=== PATIENT | male | born 1935 | race Caucasian/White ===

== ENCOUNTER 2023-02-16 06:21 | Inpatient (IN) | payer MEDICARE ==
--- NOTE | 2023-02-16 06:28 | ED ---
General Adult HPI - General Stated complaint: STEMI Time Seen by Provider: 02/16/23 06:25 - History of Present Illness Initial comments: Dictation was produced using SpeechVive dictation software. please excuse any grammatical, word or spelling errors. Chief Complaint: 87-year-old male presents emergency part for ST segment elevation OR History of Present Illness: Patient is a 87-year-old male. He is high functioning. Patient has a past medical history of atrial fibrillation managed with pelvic [place]. Patient while sleeping experience a pressure-like sensation to his substernal area. He states that it also the leg is in between his shoulder blades. Patient reports associated nausea and diaphoresis. Denies any numbness and paresthesias to the arms or legs. EMS was called. EMS performed prehospital EKG was suggested ST segment elevation OR he was brought to the ER as a priority 1. Patient was not given nitro he was given aspirin. Patient has any history of myocardial infarction. The ROS documented in this emergency department record has been reviewed and confirmed by me. Those systems with pertinent positive or negative responses have been documented in the HPI. All other systems are other negative and/or noncontributory. PHYSICAL EXAM: General Impression: Alert and oriented x3, not in acute distress HEENT: Normocephalic atraumatic, extra-ocular movements intact, pupils equal and reactive to light bilaterally, mucous membranes moist. Cardiovascular: Heart regular rate and rhythm Chest: Able to complete full sentences, no retractions, no tachypnea Abdomen: abdomen soft, non-tender, non-distended, no organomegaly Musculoskeletal: Pulses present and equal in all extremities, no peripheral edema Motor: no focal deficits noted Neurological: CN II-XII grossly intact, no focal motor or sensory deficits noted Skin: Intact with no visualized rashes Psych: Normal affect and mood ED course: 87-year-old male presents to emergency part for ST segment elevation OR. Prehospital EKG was reviewed. There was a delay with activation given that EKG was not transmitted prior to arrival. EKG was performed immediately upon arrival showing ST segment elevation OR and inferior leads with reciprocal changes. Case discussed with garage mechanic supervisor cell operation, Dr. Mccain. Nursing notes and chart review was performed EKG interpreted by me: Ventricular rate 57, A. fib, ST segment elevation in 2-3 aVF and V3. There is reciprocal changes and high lateral leads and anterior precordial leads.. No [place] prolongation, no QTC prolongation. While in the emergency department waiting to go to the cardiac cath tech patient had a an episode of syncope. environmental monitoring technician showed ventricular fibrillation. Patient was given defibrillation. He had another event requiring defibrillation. Patient had return of normal rhythm with return to normal mentation. Patient started on amiodarone. He received aspirin by prehospital providers. Patient given heparin bolus. Was pt. sent in by a medical professional or institution ([facility] Marsh, PROMOTION PRODUCER, urgent care, hospital, or fdc...) When possible be specific @ -No Did you speak to anyone other than the patient for history (EMS, parent, family, police, friend...)? What history was obtained from this source @ -EMS Did you review nursing and triage notes (agree or disagree)? Why? @ -I reviewed and agree with nursing and triage notes Were old charts reviewed (outside hosp., previous admission, EMS record, old EKG, old radiological studies, urgent care reports/EKG's, fdc records)? Report findings @ -No old charts were reviewed Differential Diagnosis (chest pain, altered mental status, abdominal pain women, abdominal pain men, vaginal bleeding, musculoskeletal, weakness, fever, dyspnea, syncope, headache, dizziness, GI bleed, back pain, seizure, CVA, palpatations, mental health)? @ -Differential Chest Pain: Stable Angina, Unstable Angina, STEMI, NSTEMI Aortic Dissection, Pneumothorax, Musculoskeletal, Esophageal Spasm GERD, Cholecystitis, Pancreatitis, Zoster, this is not meant to be an all-inclusive list. EKG interpreted by me (3pts min.). @ -See above X-rays interpreted by me (1pt min.). @ -No acute processes CT interpreted by me (1pt min.). @ -None done U/S interpreted by me (1pt. min.). @ -None done What testing was considered but not performed or refused? (CT, X-rays, U/S, labs)? Why? @ -None What meds were considered but not given or refused? Why? @ -None Did you discuss the management of the patient with other professionals (professionals i.e. JOSE Marsh, PROMOTION PRODUCER, lab, RT, psych nurse, social worker delinquency prevention, criminal defense lawyer, teacher, contracts officer, showcase trimmer)? Give summary @ -No Was smoking cessation discussed for >3mins.? @ -No Was critical care preformed (if so, how long)? @ -Yes, 33 minutes Were there social determinants of health that impacted care today? How? (Homeles sness, low income, unemployed, alcoholism, drug addiction, transportation, low edu. Level, literacy, decrease access to med. care, correction, rehab)? @ -No Was there de-escalation of care discussed even if they declined (Discuss DNR or withdrawal of care, Hospice)? DNR status @ -No What co-morbidities impacted this encounter? (DM, HTN, Smoking, COPD, CAD, Cancer, CVA, ARF, Chemo, Hep., AIDS, mental health diagnosis, sleep apnea, morbid obesity)? @ -None Was patient admitted / discharged? Hospital course, mention meds given and route, prescriptions, significant lab abnormalities, going to OR and other pertinent info. @ -87-year-old male presents emergency department for ST segment elevation OR. Code STEMI paged. Case discussed with Dr. Mccain. Patient disposition to cardiac cath tech 3. Undiagnosed new problem with uncertain prognosis? @ -No Drug Therapy requiring intensive monitoring for toxicity (Heparin, Nitro, Insulin, Cardizem)? @ -No Were any procedures done? @ -Defibrillation Diagnosis/symptom? Acute, or Chronic, or Acute on Chronic? Uncomplicated (without systemic symptoms) or Complicated (systemic symptoms)? @ -Acute, complicated ST segment elevation OR Side effects of treatment? @ -No Exacerbation, Progression, or Severe Exacerbation? @ -No Poses a threat to life or bodily function? How? (Chest pain, USA, OR, pneumonia, PE, COPD, DKA, ARF, appy, cholecystitis, CVA, Diverticulitis, Homicidal, Suic idal, threat to staff... and all critical care pts) @ -yes - Related Data Allergies Allergy/AdvReac Type Severity Reaction Status Date / Time No Known Allergies Allergy Verified 02/16/23 06:30 Review of Systems ROS Statement: Those systems with pertinent positive or pertinent negative responses have been documented in the HPI. ROS Other: All systems not noted in ROS Statement are negative. Course Vital Signs 02/16/23 02/16/23 06:22 06:39 Pulse Rate 63 Pulse Rate [ 63 Compliance Analyst ] Respiratory 20 Rate Blood Pressure 82/67 O2 Sat by Pulse 92 L Oximetry Medical Decision Making - Lab Data Result diagrams: 02/16/23 06:36 Lab Results 02/16/23 Range/Units 06:36 WBC 7.3 (3.8-10.6) k/uL RBC 5.53 (4.30-5.90) m/uL Hgb 16.5 (13.0-17.5) gm/dL Hct 52.0 (39.0-53.0) % MCV 93.9 (80.0-100.0) fL MCH 29.9 (25.0-35.0) pg MCHC 31.8 (31.0-37.0) g/dL RDW 15.2 (11.5-15.5) % Plt Count 154 (150-450) k/uL MPV 8.7 Neutrophils % 61 % Lymphocytes % 25 % Monocytes % 9 % Eosinophils % 3 % Basophils % 1 % Neutrophils # 4.5 (1.3-7.7) k/uL Lymphocytes # 1.8 (1.0-4.8) k/uL Monocytes # 0.6 (0-1.0) k/uL Eosinophils # 0.2 (0-0.7) k/uL Basophils # 0.1 (0-0.2) k/uL Disposition Clinical Impression: STEMI (ST elevation myocardial infarction) Disposition: ADMITTED IP TO THIS [facility] Condition: Critical Referrals: None,Stated [Primary Care Provider] - 1-2 days Decision Time: 06:47
[2023-02-16] MEDS ORDERED: ONDANSETRON 4 MG/2 ML VIAL IVP STA (06:37)
[2023-02-16] MEDS ORDERED: DEXTROSE 5% IN WATER 100 ML with AMIODARONE 150 MG IV ONE (06:39)
[2023-02-16] MEDS ORDERED: HEPARIN SODIUM 1,000 UN/ML (10ML VL) IVP STA (06:40)
[2023-02-16] MEDS ORDERED: NALOXONE 0.4 MG/ML 1 ML VIAL IV PRN (06:43)
[2023-02-16 06:44] LABS: Basophils # (A) 0.1 k/uL (0-0.2); Basophils % (A) 1 %; Eosinophils # (A) 0.2 k/uL (0-0.7); Eosinophils % (A) 3 %; HGB 16.5 gm/dL (13.0-17.5); Lymphocytes # (A) 1.8 k/uL (1.0-4.8); Lymphocytes % (A) 25 %; MCH 29.9 pg (25.0-35.0); MCHC 31.8 g/dL (31.0-37.0); MCV 93.9 fL (80.0-100.0); Mean Platelet Volume 8.7; Monocytes # (A) 0.6 k/uL (0-1.0); Monocytes % (A) 9 %; Neutrophils # (A) 4.5 k/uL (1.3-7.7); Neutrophils % (A) 61 %; Platelet Count 154 k/uL (150-450); RBC 5.53 m/uL (4.30-5.90); RDW 15.2 % (11.5-15.5); WBC 7.3 k/uL (3.8-10.6)
[2023-02-16] MEDS ORDERED: VERAPAMIL 2.5 MG/ML 2 ML AMP ONE (06:47)
[2023-02-16] MEDS ORDERED: LIDOCAINE 1% INJ 10MG/ML (20 ML MDV) ONE (06:47)
[2023-02-16 06:54] LABS: Albumin 4.4 g/dL (3.5-5.0); Calcium 9.3 mg/dL (8.4-10.2); Potassium 4.3 mmol/L (3.5-5.1); Total Bilirubin 1.9 mg/dL (0.2-1.3); Total Protein 7.4 g/dL (6.3-8.2)
--- NOTE | 2023-02-16 06:58 | XR ---
EXAMINATION TYPE: XR chest 1V portable DATE OF EXAM: 02/16/2023 6:49 AM COMPARISON: None TECHNIQUE: XR chest 1V portable Portable AP radiograph of the chest. CLINICAL INDICATION:Male, 87 years old with history of chest pain; FINDINGS: Lungs/Pleura: No pneumothorax, focal consolidation, or pneumothorax. Senescent parenchymal change. Pulmonary vascularity: Unremarkable. Heart/mediastinum: Cardiomediastinal silhouette is enlarged. Atherosclerotic calcification of the aor ta. Musculoskeletal: No acute osseous pathology. 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 IMPRESSION: No acute cardiopulmonary disease/process.
[2023-02-16] MEDS ORDERED: fentaNYL (PF) 50 MCG/ML 2 ML AMP ONE (06:59)
[2023-02-16] MEDS ORDERED: AMIODARONE 360 MG in DEXTROSE 5% IN WATER 200 ML IV ONE ×2 (07:00)
[2023-02-16 07:01] LABS: INR 1.2 (<1.2); Partial Thromboplastin Time 22.1 sec (22.0-30.0); Prothrombin Time 12.6 sec (9.0-12.0)
[2023-02-16] MEDS ORDERED: TICAGRELOR 90 MG TAB ONE (07:10)
[2023-02-16] MEDS ORDERED: SODIUM CHLORIDE 0.9% 1,000 ML IV ONE (07:10)
[2023-02-16] MEDS ORDERED: TICAGRELOR 90 MG TAB PO ONE (07:10)
--- NOTE | 2023-02-16 07:12 | P.CRDCN ---
History of Present Illness History of present illness: This is Dr. Mccain dictating a consult on this patient The patient was interviewed and examined IMPRESSION / ASSESSMENT: Large inferoposterior lateral acute SD, ST elevation type History of hypertension History of atrial fibrillation, on ELIQUIS PLAN: Proceed with coronary angiography and urgent intervention Discussed with Dr. Banks HPI Patient presented with midsternal chest discomfort that woke him up from sleep at around 4:30 in the morning I was called the ER physician stating that this was an 87-year-old gentleman who presented with ST elevation SD which chest pain, inferior wall Subsequently when I examined the patient I saw IV amiodarone hanging from the IV pole When I questioned it, I was told that patient had 2 episodes of ventricular fibrillation and received shocks to resuscitate him Patient denies any history of SD in the past. He has atrial fibrillation, takes ELIQUIS, has a history of hypertension He's also had an abdominal tumor in the past Twelve-lead EKG shows ST elevation in the inferior leads, ST depression in the precordial leads consistent with posterior ST elevations and ST depression in the high lateral leads Large inferoposterior lateral SD, acute Atrial fibrillation on EKG ROS: No fever chills or rigors, no cough, phlegm or expectoration, no nausea, vomiting or diarrhea, no hematuria, dysuria, no musculoskeletal complaints, no strokes or seizures, no skin lesions. EXAMINATION: Blood pressure 82/67 and then subsequently 137/84 mmHg Pulse rate in the 60s Breath sounds equal bilaterally Normal heart sounds normal S1 normal S2 no murmurs REVIEW OF LABS, ECG & MEDICAL DATA White count 7.3, hemoglobin 16.5, platelet count 154,000 Sodium 141, potassium 4.3 BUN 23 and creatinine 1.73 First is 230 Past Medical History Past Medical History: Atrial Fibrillation, Cancer Past Surgical History: Cholecystectomy Additional Past Surgical History / Comment(s): TRIP; abd surgery Medications and Allergies Allergies Allergy/AdvReac Type Severity Reaction Status Date / Time No Known Allergies Allergy Verified 02/16/23 06:30 Physical Exam Vitals: Vital Signs Pulse Pulse Resp BP Pulse Ox 02/16/23 06:46 63 20 137/84 100 02/16/23 06:39 63 02/16/23 06:22 63 20 82/67 92 L Intake and Output 02/15/23 02/16/23 02/16/23 22:59 06:59 14:59 Other: Weight 90.718 kg Results 02/16/23 06:36 02/16/23 06:36 Cardiac Enzymes 02/16/23 Range/Units 06:36 AST 53 (17-59) U/L Coagulation 02/16/23 Range/Units 06:36 PT 12.6 H (9.0-12.0) sec APTT 22.1 (22.0-30.0) sec CBC 02/16/23 Range/Units 06:36 WBC 7.3 (3.8-10.6) k/uL RBC 5.53 (4.30-5.90) m/uL Hgb 16.5 (13.0-17.5) gm/dL Hct 52.0 (39.0-53.0) % Plt Count 154 (150-450) k/uL Comprehensive Metabolic Panel 02/16/23 Range/Units 06:36 Sodium 141 (137-145) mmol/L Potassium 4.3 (3.5-5.1) mmol/L Chloride 102 (98-107) mmol/L Carbon Dioxide 27 (22-30) mmol/L BUN 23 H (9-20) mg/dL Creatinine 1.73 H (0.66-1.25) mg/dL Glucose 143 H (74-99) mg/dL Calcium 9.3 (8.4-10.2) mg/dL AST 53 (17-59) U/L ALT 34 (4-49) U/L Alkaline Phosphatase 230 H (38-126) U/L Total Protein 7.4 (6.3-8.2) g/dL Albumin 4.4 (3.5-5.0) g/dL Current Medications Generic Name Dose Route Start Last Admin Trade Name Freq PRN Reason Stop Dose Admin Amiodarone HCl 360 mg/ 200 mls @ 33.333 mls/hr 02/16/23 07:00 02/16/23 06:46 Dextrose/Water IV 02/16/23 12:59 1 mg/min .Q6H ONE 33.333 mls/hr Administration Protocol 1 MG/MIN Naloxone HCl 0.2 mg 02/16/23 06:43 Naloxone 0.4 Mg/Ml 1 Ml Vial IV Q2M PRN Opioid Reversal Intake and Output 02/15/23 02/16/23 02/16/23 22:59 06:59 14:59 Other: Weight 90.718 kg 02/16/23 06:36 02/16/23 06:36
[2023-02-16] MEDS ORDERED: TIROFIBAN 12.5MG-250ML NS 250 ML IV ONE ×2 (07:21→07:22)
[2023-02-16] MEDS ORDERED: fentaNYL (PF) 50 MCG/ML 2 ML AMP IVP ONE (07:25)
[2023-02-16] MEDS ORDERED: HEPARIN SODIUM 1,000 UN/ML (10ML VL) ONE (07:34)
[2023-02-16] MEDS: HEPARIN SODIUM 1,000 UN/ML (10ML VL) IVP ONE ×2 (07:35→07:59)
[2023-02-16] MEDS ORDERED: IOPAMIDOL-370 125ML BTL INJ ONE (07:57)
--- NOTE | 2023-02-16 08:14 | P.PRCINT ---
Percutaneous Coronary Int. - Percutaneous Coronary Intervention Percutaneous Coronary Intervention: PROCEDURES PERFORMED: Bilateral coronary angiography, IVUS RCA, Penumbra aspiration thrombectomy RCA, PCI proximal to mid RCA with overlapping 4.0 x 38mm Xience SCHUYLER and 2.75 x 38mm Xience SCHUYLER, post dilated with a 4.0 NC balloon INDICATION: Inferior STEMI CONSENT:I have discussed the risks, benefits and alternative therapies for the above-mentioned procedure and for both sedation/analgesia as well as necessary blood product administration, if indicated, as they pertain to this patient. The patient has indicated understanding and acceptance of the risks and procedures discussed. PROCEDURE: After the risks, benefits and alternatives of the above mentioned procedure explained in detail with the patient, informed consent was obtained. Patient was taken to the catheterization lab and prepped and draped in usual fashion. 1% lidocaine was used to anesthetize the right radial artery. A 6- Bulgarian sheath was placed in the right radial artery using modified Seldinger technique. Right coronary angiography was performed with a 6-Bulgarian AL 0.75 guide. The decision was made to perform PCI of the RCA. Heparin was given. There was large thrombus burden and therefore Aggrastat was also given. A 0.014 BMW wire was advanced into the distal RCA. Predilation was performed with a 2.5 and on 3.0 balloon however still no antegrade flow. Penumbra aspiration thrombectomy was performed however without much improvement in flow. Therefore IVUS was performed which showed diffuse proximal mid RCA stenosis with normal segment at the mid to distal RCA. Therefore decision was made to perform stenting of the entire area. A 2.75 x 38 mm Xience SCHUYLER was placed distally and a 4.0 x 38mm Xience SCHUYLER was placed overlapping the other stent more proximally. The stents were postdilated with a 4.0 noncompliant balloon. Final angiograms were performed. Pre-intervention there was 100% stenosis and JARRED 0 flow and postintervention there is less than 10% stenosis and JARRED-3 flow. Left coronary angiography was performed with a 5-Bulgarian JL 3.5 catheter. The right radial sheath was removed and a TR band was placed with hemostasis achieved. The patient tolerated the procedure well. Patient was transported back to the post catheterization holding area in stable condition. Conscious Sedation: Patient was monitored under the direct supervision of myself for conscious sedation using Versed and fentanyl for a total duration of 53 minutes HEMODYNAMICS: Aortic: 110/72 SELECTIVE CORONARY ARTERIOGRAPHY: LEFT MAIN: The left main is a large caliber vessel which bifurcates into the LAD and circumflex. There is no significant stenosis. LEFT ANTERIOR DESCENDING CORONARY ARTERY: LAD is a large caliber vessel which wraps around to the apex. There is a long diffuse 70% proximal to mid LAD stenosis LEFT CIRCUMFLEX CORONARY ARTERY: Left circumflex is a moderate caliber vessel with mild luminal irregularities. RIGHT CORONARY ARTERY: The right coronary artery is a large caliber vessel which gives off a PDA and PLV branch and is the dominant vessel. There is 100% proximal RCA stenosis. FINAL IMPRESSION: 1. CAD as described above including 70% proximal to mid LAD stenosis and 100% proximal RCA stenosis 2. S/p PCI proximal to mid RCA with overlapping 4.0 x 38mm Xience SCHUYLER and 2.75 x 38mm Xience SCHUYLER, post dilated with a 4.0 NC balloon PLAN: 1. Aggressive risk factor modification per most recent ACC/AHA guidelines. 2. Continue Brillinta and Eliquis for 12 months. 3. Consider further ischemic workup of proximal LAD lesion or staged intervention if having significant angina.
[2023-02-16 08:31] LABS: Glucose,Whole Blood 117 mg/dL (70-110)
[2023-02-16] MEDS ORDERED: ONDANSETRON 4 MG/2 ML VIAL IVP PRN (08:49)
--- NOTE | 2023-02-16 10:03 | P.HPIM ---
History of Present Illness H&P Date: 02/16/23 Chief Complaint: chest pain 87 with a medical history of hypertension, permanent atrial fibrillation on Apixiban, chronic kidney disease stage III presented for evaluation chest pain. Patient says that he was resting this morning and started having chest pain around 4 in the morning when he woke up from sleep. The pain was substernal in nature with squeezing quality. Patient has never had episodes of this nature in the past, and became concerned and presented to the emergency room for further evaluation. He denies fevers, chills, nausea, vomiting, palpitations, sick, presyncope, cough, dyspnea, abdominal pain, constipation, diarrhea, dysuria, numbness/weakness of extremities. In the emergency room, patient was afebrile, 82/67, heart rate 63, 92% on 2 L nasal cannula. CBC is unremarkable. Chemistries showed BUN of 23, creatinine of 1.73. Liver function tests showed alkaline phosphatase of 230, total bilirubin 1.9, otherwise unremarkable. Troponin was 0.092. Coags show elevated INR of 1.2. EKG demonstrated ST elevation in leads 2, 3, aVF, V3 with lead 3 greater than lead 2, and with reciprocal changes in leads 1, aVL, V2. Chest x- ray demonstrated borderline cardiomegaly with prominent right ventricle, increased pulmonary vascularity without overt signs of heart failure. Patient was taken emergently to the [facility] for percutaneous intervention via right radial approach. While in the cath suite, patient was found to have 100% RCA lesion with 70% LAD lesion. Drug-eluting stent was placed to the RCA, and patient was given Aggrastat. Patient was subsequently transferred to the intensive care unit for further monitoring. All Systems reviewed and pertinent positives and negatives noted in HPI, all other symptoms are negative Gen: awake, alert HEENT: normocephalic, atraumatic, good hearing acuity, moist mucous membranes Resp: good air exchange, breathing comfortably with no accessory muscle use CVS: good distal perfusion x 4, GI: soft, NTTP, ND : no SPT, no CVAT, junior catheter not present MSK: no pitting edema, no clubbing Neuro: non-focal, moving all extremities Psych: cooperative, euthymic mood Assessment: STEMI Hypertension Permanent atrial fibrillation on Apixiban Chronic kidney disease stage III Plan: Vital signs reviewed and noted in HPI Labs reviewed and noted in HPI EKG and chest x-ray personally interpreted noted in HPI Cardiology consultation note, PCI note reviewed and summarized in the HPI I ordered Apixiban, brilinta per cardiology recommendations I started the patient on atorvastatin 40 mg daily at bedtime Patient should be continued on amiodarone drip, monitor telemetry for toxicity Patient should be started on a beta shaunna once his heart rates improve TSH, A1c, lipid panel were ordered by me CBC, basic metabolic panel, magnesium were ordered by me Patient is full code DVT prophylaxis covered with Apixiban Past Medical History Past Medical History: Atrial Fibrillation, Cancer Past Surgical History: Cholecystectomy Additional Past Surgical History / Comment(s): TRIP; abd surgery Medications and Allergies Allergies Allergy/AdvReac Type Severity Reaction Status Date / Time No Known Allergies Allergy Verified 02/16/23 06:30 Physical Exam Osteopathic Statement: *. No significant issues noted on an osteopathic structural exam other than those noted in the History and Physical/Consult. Vitals: Vital Signs Temp Pulse Pulse Resp BP Pulse Ox 02/16/23 09:30 57 L 10 L 108/83 97 02/16/23 09:00 43 L 8 L 108/69 96 02/16/23 08:30 96.3 F L 45 L 19 117/46 97 02/16/23 06:46 63 20 137/84 100 02/16/23 06:39 63 02/16/23 06:22 63 20 82/67 92 L Intake and Output 02/15/23 02/16/23 02/16/23 22:59 06:59 14:59 Intake Total 499.2 Output Total 0 Balance 499.2 Intake: IV 499.2 0.9 @75 150 Output: Urine 0 Other: Weight 90.718 kg Results CBC & Chem 7: 02/16/23 06:36 02/16/23 06:36 Labs: Abnormal Lab Results - Last 24 Hours (Table) 02/16/23 02/16/23 02/16/23 Range/Units 06:36 06:36 06:36 PT 12.6 H (9.0-12.0) sec INR 1.2 H (<1.2) BUN 23 H (9-20) mg/dL Creatinine 1.73 H (0.66-1.25) mg/dL Glucose 143 H (74-99) mg/dL POC Glucose (mg/dL) (70-110) mg/dL Total Bilirubin 1.9 H (0.2-1.3) mg/dL Alkaline Phosphatase 230 H (38-126) U/L Troponin I 0.092 H* (0.000-0.034) ng/mL 02/16/23 Range/Units 08:30 PT (9.0-12.0) sec INR (<1.2) BUN (9-20) mg/dL Creatinine (0.66-1.25) mg/dL Glucose (74-99) mg/dL POC Glucose (mg/dL) 117 H (70-110) mg/dL Total Bilirubin (0.2-1.3) mg/dL Alkaline Phosphatase (38-126) U/L Troponin I (0.000-0.034) ng/mL
[2023-02-16] MEDS ORDERED: MAG HYDROX/AL HYDROX/SIMETH 30 ML CUP PO PRN (11:22)
[2023-02-16] MEDS ORDERED: RX INFO: IV CONTRAST WAS GIVEN 1 EACH MISC MISCELLANE PRN (11:22)
[2023-02-16] MEDS ORDERED: NITROGLYCERIN SL TABS 0.4 MG TAB SUBLINGUAL PRN (11:22)
[2023-02-16] MEDS ORDERED: ATROPINE SULFATE 0.1 MG/ML 10ML SYRINGE IV PRN (11:22)
[2023-02-16] MEDS ORDERED: ZOLPIDEM 5 MG TAB PO PRN (11:22)
[2023-02-16] MEDS ORDERED: SODIUM CHLORIDE 0.9% 1,000 ML in EMPTY BAG 1 BAG IV SCH (11:30)
--- NOTE | 2023-02-16 16:55 | CA ---
Transthoracic Echo Report Name: Efren Freeman Age: 87 Gender: M : 1935 Exam Date: 02/16/2023 13:16 Exam Location: [facility] Ht (in): 71 Wt (lb): 205 Ordering Physician: Forest Schmid MD ([id number]) Attending/Referring Phys: Sharmaine GONZALEZ Spinner Tender Elsi Ferraro RDCS Procedure CPT: Indications: stemi Cardiac Hx: Technical Quality: Good Contrast 1: Total Dose (mL): Contrast 2: Total Dose (mL): MEASUREMENTS (Male / Female) Normal Values 2D ECHO LV Diastolic Diameter PLAX 3.9 cm 4.2 - 5.9 / 3.9 - 5.3 cm LV Systolic Diameter PLAX 3.3 cm IVS Diastolic Thickness 1.7 cm 0.6 - 1.0 / 0.6 - 0.9 cm LVPW Diastolic Thickness 1.8 cm 0.6 - 1.0 / 0.6 - 0.9 cm LV Relative Wall Thickness 0.9 RV Internal Dim ED PLAX 3.6 cm LA Systolic Diameter LX 3.3 cm 3.0 - 4.0 / 2.7 - 3.8 cm LV Diastolic Volume MOD 4C 69.5 cm??? LV Systolic Volume MOD 4C 48.2 cm??? LV Ejection Fraction MOD 4C 30.6 % LV Diastolic Length 4C 7.5 cm LV Systolic Length 4C 7.8 cm LA Volume 50.6 cm??? 18 - 58 / 22 - 52 cm??? M-MODE Aortic Root Diameter MM 3.9 cm MV E Point Septal Separation 1.1 cm AV Cusp Separation MM 1.9 cm DOPPLER AV Peak Velocity 84.4 cm/s AV Peak Gradient 2.8 mmHg AI Peak Velocity 196.4 cm/s AI Peak Gradient 15.4 mmHg AI Pressure Half Time 990.1 ms MV Area PHT 4.4 cm??? MV Deceleration Time 160.0 ms TR Peak Velocity 175.3 cm/s TR Peak Gradient 12.3 mmHg Right Ventricular Systolic Press 17.2 mmHg FINDINGS Left Ventricle Left ventricular ejection fraction is estimated at 30 %. Severe concentric left ventricular hypertrophy. Severely reduced global left ventricular systolic function. Right Ventricle Mild right ventricular dilatation. Right ventricular systolic pressure within normal limits. Right Atrium Normal right atrial size. Left Atrium Normal left atrial size. Mitral Valve Structurally normal mitral valve. Mild mitral regurgitation. Aortic Valve Trileaflet aortic valve. Thickened aortic valve without stenosis. Tricuspid Valve Structurally normal tricuspid valve. Mild tricuspid regurgitation. Pulmonic Valve Structurally normal pulmonic valve. Trace pulmonic regurgitation. Pericardium Normal pericardium. No pericardial effusion. Aorta Mild aortic dilatation at the level of the sinuses of valsalva 39 mm CONCLUSIONS Severe LV systolic dysfunction with an ejection fraction of 30% mild mitral and tricuspid regurgitation aortic sclerosis without any stenosis Previewed by: Dr. Forest Schmid MD (Electronically Signed) Final Date: 16 February 2023 16:54
[2023-02-16] MEDS: ATORVASTATIN 40 MG TAB PO SCH (20:33)
[2023-02-16] MEDS: APIXABAN 2.5 MG TABLET PO SCH (20:33)
[2023-02-16] MEDS: TICAGRELOR 90 MG TAB PO SCH (20:34)
[2023-02-17 04:41] LABS: Basophils % (A) 0 %; Eosinophils % (A) 0 %; HCT 42.4 % (39.0-53.0); HGB 13.8 gm/dL (13.0-17.5); Lymphocytes # (A) 1.2 k/uL (1.0-4.8); Lymphocytes % (A) 10 %; MCH 30.1 pg (25.0-35.0); MCHC 32.6 g/dL (31.0-37.0); MCV 92.4 fL (80.0-100.0); Mean Platelet Volume 9.2; Monocytes # (A) 1.1 k/uL (0-1.0); Monocytes % (A) 9 %; Neutrophils # (A) 9.9 k/uL (1.3-7.7); Neutrophils % (A) 78 %; Platelet Count 136 k/uL (150-450); RBC 4.59 m/uL (4.30-5.90); RDW 15.6 % (11.5-15.5); WBC 12.6 k/uL (3.8-10.6)
[2023-02-17 04:56] LABS: African American GFR (CKD) 24 (>60 ml/min/1.73 sqM); Anion Gap 12 mmol/L; Blood Urea Nitrogen 36 mg/dL (9-20); Calcium 8.7 mg/dL (8.4-10.2); Carbon Dioxide 22 mmol/L (22-30); Chloride 102 mmol/L (98-107); Glucose 142 mg/dL (74-99); Magnesium 2.1 mg/dL (1.6-2.3); Non-African American GFR(CKD) 21 (>60 ml/min/1.73 sqM); Potassium 4.5 mmol/L (3.5-5.1); Sodium 136 mmol/L (137-145)
[2023-02-17] MEDS: APIXABAN 2.5 MG TABLET PO SCH ×2 (09:15→20:21)
[2023-02-17] MEDS: TICAGRELOR 90 MG TAB PO SCH ×2 (09:16→20:21)
[2023-02-17] MEDS: SODIUM CHLORIDE 0.9% 1,000 ML IV SCH ×2 (10:00→20:22)
--- NOTE | 2023-02-17 10:59 | US ---
EXAMINATION TYPE: US renals and bladder DATE OF EXAM: 02/17/2023 COMPARISON: NONE CLINICAL HISTORY: JOSE G. Hx of colon cancer. EXAM MEASUREMENTS: Right Kidney: 11.9 x 5.6 x 5.8 cm Left Kidney: 11.4 x 5.7 x 5.0 cm Right Kidney: Complex septated area seen upper pole: 9.1 x 8.7 x 6.8 cm. Hypoechoic area seen lower pole: 1.4 x 1.1 x 1.0 cm. Left Kidney: Very limited visibility. Hypoechoic area seen lower pole: 5.9 x 5.0 x 5.3 cm. Bladder: Solid-appearing isoechoic/hyperechoic area seen that appears to be attached to the bladder w all: 0.3 x 0.4 x 1.1 cm. Slightly limited evaluation of bladder-not fully distended. Bilateral Jets seen: Left jet seen during exam. There are no renal calcifications or hydronephrosis. The renal cortices are mildly thinned and hyper echoic consistent with medical renal disease. IMPRESSION: 1. Mild medical renal disease bilaterally. 2. Large 9 cm septated mass upper pole the right kidney not consistent with a simple cortical cyst 3. Markedly irregular urinary bladder wall with possible small polypoid mass. 4. CT urogram would be useful for further evaluation of the kidneys and urinary bladder.
[2023-02-17] MEDS: allopurinoL 100 MG TAB PO SCH (11:26)
[2023-02-17 12:41] LABS: Chol/HDL Ratio 2.36 Ratio; LDL Cholesterol,Calculated 55.1 mg/dL (0.0-131.0); VLDL Calculation 18.18 mg/dL (5.00-40.00)
--- NOTE | 2023-02-17 12:46 | P.PN ---
Subjective Progress Note Date: 02/17/23 Patient is seen today resting comfortably in bed in no signs of acute distress. He denies any further episodes of chest pain or increased shortness of breath. He is doing well. Groin site is soft with no hematoma or ecchymosis. Patient received a stent to the RCA. At the time of exam patient is sinus rhythm on the monitor. Patient flips back and forth between sinus rhythm and atrial fibrillation with a controlled rate He continues on Eliquis and Brilinta. He is echocardiogram shows a decreased LV function with an ejection fraction of 30% and mild mitral and tricuspid regurgitation. Patient's kidney function is elevated BUN is 36 and creatinine is 2.64. Patient is undergoing a ultrasound o f the kidneys at the time of my exam. Objective - Vital Signs Vital signs: Vital Signs Temp 97.3 F L 02/17/23 09:00 Pulse 73 02/17/23 11:00 Resp 11 L 02/17/23 11:00 BP 128/79 02/17/23 11:00 Pulse Ox 97 02/17/23 11:00 FiO2 Intake & Output 02/16/23 02/17/23 02/17/23 18:59 06:59 18:59 Intake Total 1614.2 610 843 Output Total 130 100 0 Balance 1484.2 510 843 Weight 93.032 kg 90.6 kg Intake: IV 1174.2 250 245 0.9 @ KVO 80 20 0.9 @75 825 170 225 Oral 440 360 598 Output: Urine 130 100 0 Other: Voiding Method Self-Catheterization Self-Catheterization # Voids 1 # Bowel Movements 1 - Exam PHYSICAL EXAM: VITAL SIGNS: Reviewed. GENERAL: Well-developed in no acute distress. HEENT: Head is normocephalic. Pupils are equal, round. Sclerae anicteric. Mucous membranes of the mouth are moist. NECK: Supple. No JVD or thyromegaly RESPIRATORY: Respirations even and unlabored. Lungs diminished to auscultation bilaterally. CARDIO: Regular rate and rhythm. S1 and S2 heard. No murmur or gallops. EXTREMITIES: Normal range of motion. No clubbing or cyanosis. Peripheral pulses intact. Negative for bilateral lower extremity edema NEURO: Orientated to person, time, mood is appropriate - Labs CBC & Chem 7: 02/17/23 04:04 02/17/23 04:04 Labs: Abnormal Lab Results - Last 24 Hours (Table) 02/17/23 02/17/23 Range/Units 04:04 04:04 WBC 12.6 H (3.8-10.6) k/uL RDW 15.6 H (11.5-15.5) % Plt Count 136 L (150-450) k/uL Neutrophils # 9.9 H (1.3-7.7) k/uL Monocytes # 1.1 H (0-1.0) k/uL Sodium 136 L (137-145) mmol/L BUN 36 H (9-20) mg/dL Creatinine 2.64 H (0.66-1.25) mg/dL Glucose 142 H (74-99) mg/dL Assessment and Plan Assessment: STEMI s/p stent to the RCA Atrial fibrillation Plan: Continue with all current cardiac medications Continue to monitor kidney function nephrology on consult Continue telemetry monitoring Further recommendations based on clinical course The above impression and plan of care have been discussed and directed by the signing physician. Mary Child, nurse practitioner, acting as scribe for signing physician.
[2023-02-17] MEDS: IPRATROPIUM 0.5 MG/2.5 ML NEBU INHALATION SCH ×3 (12:54→20:41)
--- NOTE | 2023-02-17 12:55 | P.NPCON ---
History of Present Illness - Reason for Consult Consult date: 02/17/23 acute renal failure - Chief Complaint Chest pain and acute GA - History of Present Illness This is a 87-year-old male seen in consultation because of chronic kidney disease and possible acute kidney injury. He is followed up by a physician outside for his chronic kidney disease supposedly his creatinine was 1.6 at its highest. He came in with chest pain and underwent cardiac cath yesterday for 05/31/2023 and had a stent placed. An echocardiogram shows 30% ejection fraction Currently he is pain-free and feels fairly well. No dizziness no nausea vomiting but had some diarrhea. He has had history of colon cancer and had been self catheterizing himself 4 times a day for urinary retention of unclear cause supposedly there was some postop complications after his colon cancer surgery. He is known with atrial fibrillation. Past Medical History Past Medical History: Atrial Fibrillation, Cancer Additional Past Medical History / Comment(s): colon ca 2002 with chemo and surgery, gout, right drop foot, pt self caths History of Any Multi-Drug Resistant Organisms: None Reported Past Surgical History: Cholecystectomy Additional Past Surgical History / Comment(s): TRIP; abd surgery Past Anesthesia/Blood Transfusion Reactions: No Reported Reaction Past Psychological History: No Psychological Hx Reported Smoking Status: Former smoker - Past Family History Father Family Medical History: Myocardial Infarction (GA) Medications and Allergies Home Medications Medication Instructions Recorded Confirmed Type Apixaban [Eliquis] 2.5 mg PO BID 02/16/23 02/16/23 History Dorzolamide-Timol 2.23%/0.68% 1 drop BOTH EYES DIRECTED 02/16/23 02/16/23 History [Cosopt] Latanoprost [Latanoprost 0.005%] 1 drop BOTH EYES HS 02/16/23 02/16/23 History Metoprolol Tartrate [Lopressor] 25 mg PO BID 02/16/23 02/16/23 History Tiotropium 2.5 Mcg/Puff [Spiriva 2 puff INHALATION RT-DAILY 02/16/23 02/16/23 History Respimat 2.5 Mcg] Torsemide [Demadex] 10 mg PO BID@1000,2200 02/16/23 02/16/23 History allopurinoL [Zyloprim] 200 mg PO DAILY 02/16/23 02/16/23 History Allergies Allergy/AdvReac Type Severity Reaction Status Date / Time No Known Allergies Allergy Verified 02/16/23 15:53 Physical Exam Vitals: Vital Signs Temp Pulse Resp BP Pulse Ox 02/17/23 11:00 73 11 L 128/79 97 02/17/23 10:00 71 14 135/82 95 02/17/23 09:00 97.3 F L 68 13 147/100 96 02/17/23 08:00 136/87 02/17/23 07:00 90 22 99 02/17/23 06:30 82 23 142/86 02/17/23 06:00 77 17 130/88 98 02/17/23 05:30 81 13 145/87 97 02/17/23 05:00 71 6 L 139/91 97 02/17/23 04:30 75 13 148/91 97 02/17/23 04:00 98.3 F 71 8 L 127/89 97 02/17/23 03:30 91 14 132/96 97 02/17/23 03:00 77 8 L 121/74 98 02/17/23 02:30 75 10 L 131/89 98 02/17/23 02:00 81 15 127/89 99 02/17/23 01:30 78 12 126/89 96 02/17/23 01:00 74 10 L 131/74 97 02/17/23 00:30 77 12 145/75 97 02/17/23 00:00 98.0 F 76 15 117/66 98 02/16/23 23:30 86 7 L 140/71 97 02/16/23 23:25 70 10 L 140/71 97 02/16/23 23:00 70 11 L 133/74 98 02/16/23 22:30 77 7 L 141/77 97 02/16/23 22:00 84 12 138/68 98 02/16/23 21:30 68 10 L 168/94 98 02/16/23 21:00 84 12 141/67 98 02/16/23 20:30 79 6 L 145/78 96 02/16/23 20:00 98.3 F 81 14 128/88 100 02/16/23 19:30 79 10 L 149/87 96 02/16/23 19:00 80 12 146/84 100 02/16/23 18:30 78 18 139/88 93 L 02/16/23 18:00 80 7 L 137/76 100 02/16/23 17:30 75 13 131/80 100 02/16/23 17:00 71 14 138/83 92 L 02/16/23 16:30 70 7 L 129/87 93 L 02/16/23 16:00 97.5 F L 73 9 L 116/75 100 02/16/23 15:30 70 10 L 116/75 02/16/23 15:00 69 7 L 114/75 99 02/16/23 14:30 62 15 121/84 100 02/16/23 14:00 67 15 122/80 100 02/16/23 13:30 62 10 L 120/78 100 02/16/23 13:00 60 8 L 124/72 99 Intake and Output 02/16/23 02/17/23 02/17/23 22:59 06:59 14:59 Intake Total 830 320 843 Output Total 130 100 0 Balance 700 220 843 Intake: IV 470 80 245 0.9 @ KVO 80 20 0.9 @75 470 225 Oral 360 240 598 Output: Urine 130 100 0 Other: Voiding Method Self-Catheterization Self-Catheterization # Voids 1 # Bowel Movements 1 Weight 90.6 kg On exam awake alert oriented comfortable HEENT exam shows elevated JVD because of atrial fibrillation otherwise no facial asymmetry neck is supple Lungs are clear to auscultation good air entry Heart sounds unremarkable except for atrial fibrillation Abdomen soft nontender Extremity exam reveals trace edema Neurologically awake alert oriented Results - Lab Results Most recent lab results Calcium 8.7 mg/dL (8.4-10.2) 02/17/23 04:04 Magnesium 2.1 mg/dL (1.6-2.3) 02/17/23 04:04 02/17/23 04:04 02/17/23 04:04 Assessment and Plan Assessment: Impression 1. Acute kidney injury secondary to acute GA as well as possible cardiac Related dye toxicity. Creatinine was 1.73 on admission went up to 2.64. 2. History of chronic kidney disease Baseline creatinine 1.6 per patient no records available in the hospital. Followed up by nephrology outside. [facility] 3. History of neurogenic bladder with self-catheterization 4 times a day. 4. Atrial fibrillation chronic 5. Acute GA with cardiac catheterization and stent 02/16/2023 Recommendation 1. Maintain IV fluids normal saline at 75 mL an hour. 2. Expect renal function to improve. 3. Continue self-catheterization 4 times a day as he has been doing for's about 20 years. 4. Monitor labs Thank you for this consultation we'll continue follow
--- NOTE | 2023-02-17 13:57 | P.PN ---
Subjective Progress Note Date: 02/17/23 Patient is an 87-year-old male with hypertension, permanent A. fib on apixiban, and chronic kidney disease stage III who presented to the hospital with complaints of chest pain. In the emergency room he was hypotensive with blood pressure of 82/67, satting 92% on 2 L nasal cannula. Laboratory analysis was remarkable for BUN of 23, creatinine 1.73, alkaline phosphatase 2:30, bilirubin 1.9, troponin 0.092, and INR of 1.2. EKG showed ST segment elevation in leads 2, 3, aVF, & V3. Chest x-ray demonstrated borderline cardiomegaly with increased pulmonary vascularity. Patient was activated as a STEMI alert and was emergently taken to [facility]. He had a percutaneous intervention. The right radial approach with a drug-eluting stent placed to the RCA. He was subsequently admitted to the ICU. Patient seen and examined at bedside. He denies any chest pain, shortness of breath, nausea, vomiting. He reports that he follows with nephrology from the [place] regarding his renal function. He states they were concerned he may have renal cancer and he had to get repeated ultrasounds with those were stable and there was no further recommendations made. He is aware that we need to monitor his urine output closely and that he has acute kidney injury likely related to contrast dye given during his cardiac cath. He will monitor his urine closely and will straight cath every 6 hours while awake. Vital signs reviewed General: nontoxic, no distress, appears at stated age Cardiovascular: S1S2 reg, no murmur, positive posterior tibial pulse bilateral, no JVD Lungs: CTA bilateral, no rhonchi, no rales , no accessory muscle use Abdominal: soft, nontender to palpation, no guarding, no appreciable organomegaly Ext: no gross muscle atrophy, no edema, no contractures Neuro: CN II-XI grossly intact, no focal neuro deficits Psych: Alert, oriented, appropriate affect Assessment: Acute ST segment elevated myocardial infarction Hypertension Permanent A. fib on Apixiban Acute kidney injury on Chronic kidney disease stage III Thrombocytopenia and leukocytosis, likely reactive Imaging: Echocardiogram- ejection fraction 30%, severe concentric left ventricular hypertrophy, globally reduced left ventricular systolic function Data Review: AM vital signs are remarkable for a pulse of 82, respirations 23, blood pressure 142/86, and O2 sat of 97% on 3 L nasal cannula 0.6, platelets 136, sodium 136, BUN 36, creatinine 2.64, glucose 142 TSH 1.42 Total cholesterol 127, LDL 55, HDL 53.7 Plan: -Start patient on 0.9% normal saline at 75 MLS per hour -Discussed with patient he will need to straight cath every 6 hours and ensure that this is tract appropriately due to concerns of oliguria -Hold torsemide -Renal ultrasound ordered and reviewed. Medical renal disease bilaterally, large 9 cm mass upper pole right kidney not consistent with simple cortical cysts. Markedly irregular urinary bladder. [facility] and [facility] have [facility] this [facility] closely -Repeat creatinine in a.m. -Avoid hypotension -Check urinalysis - Await further cardio recs. -Continue with Eliquis 2.5 mg twice daily, Lipitor 40 mg daily, and Brilinta 90 mg twice daily. DVT prophylaxis: eliquis Discussed with: Patient and nursing Anticipated discharge date: Pending Clinical Course Anticipated discharge place: Pending Clinical Course This dictation was prepared using [employer] voice recognition software. Though every attempt is made to correct errors during during dictation some may still exist. Objective - Vital Signs Vital signs: Vital Signs Temp 98.3 F 02/17/23 04:00 Pulse 90 02/17/23 07:00 Resp 22 02/17/23 07:00 BP 142/86 02/17/23 06:30 Pulse Ox 99 02/17/23 07:00 FiO2 Intake & Output 02/16/23 02/17/23 02/17/23 18:59 06:59 18:59 Intake Total 1614.2 610 10 Output Total 130 100 0 Balance 1484.2 510 10 Weight 93.032 kg 90.6 kg Intake: IV 1174.2 250 10 0.9 @ KVO 80 10 0.9 @75 825 170 Oral 440 360 Output: Urine 130 100 0 Other: Voiding Method Self-Catheterization Self-Catheterization # Voids 1 - Labs CBC & Chem 7: 02/17/23 04:04 02/17/23 04:04 Labs: Abnormal Lab Results - Last 24 Hours (Table) 02/16/23 02/16/23 02/17/23 Range/Units 06:36 08:30 04:04 WBC 12.6 H (3.8-10.6) k/uL RDW 15.6 H (11.5-15.5) % Plt Count 136 L (150-450) k/uL Neutrophils # 9.9 H (1.3-7.7) k/uL Monocytes # 1.1 H (0-1.0) k/uL Sodium (137-145) mmol/L BUN (9-20) mg/dL Creatinine (0.66-1.25) mg/dL Glucose (74-99) mg/dL POC Glucose (mg/dL) 117 H (70-110) mg/dL Troponin I 0.092 H* (0.000-0.034) ng/mL 02/17/23 Range/Units 04:04 WBC (3.8-10.6) k/uL RDW (11.5-15.5) % Plt Count (150-450) k/uL Neutrophils # (1.3-7.7) k/uL Monocytes # (0-1.0) k/uL Sodium 136 L (137-145) mmol/L BUN 36 H (9-20) mg/dL Creatinine 2.64 H (0.66-1.25) mg/dL Glucose 142 H (74-99) mg/dL POC Glucose (mg/dL) (70-110) mg/dL Troponin I (0.000-0.034) ng/mL
[2023-02-17 18:56] LABS: Appearance,Urine Clear (Clear); Bacteria,Urine Moderate /hpf; Bilirubin,Urine Negative (Negative); Blood,Urine Moderate (Negative); Color,Urine Yellow; Glucose,Urine (UA) Negative (Negative); Ketones,Urine Negative (Negative); Leukocyte Esterase,Urine Moderate (Negative); Mucus,Urine Rare /hpf; Nitrite,Urine Negative (Negative); Protein,Urine 1+ (Negative); RBC,Urine 1 /hpf (0-5); Specific Gravity,Urine 1.017 (1.001-1.035); Squamous Epithelial Cell,Urine <1 /hpf (0-4); Urobilinogen,Urine <2.0 mg/dL (<2.0); WBC,Urine 17 /hpf (0-5)
[2023-02-17] MEDS: METOPROLOL TARTRATE 25 MG TAB PO SCH (20:21)
[2023-02-17] MEDS: ATORVASTATIN 40 MG TAB PO SCH (20:21)
[2023-02-18] MEDS: IPRATROPIUM 0.5 MG/2.5 ML NEBU INHALATION SCH ×4 (08:54→20:43)
[2023-02-18] MEDS: allopurinoL 100 MG TAB PO SCH (09:49)
[2023-02-18] MEDS: APIXABAN 2.5 MG TABLET PO SCH ×2 (09:49→21:50)
[2023-02-18] MEDS: METOPROLOL TARTRATE 25 MG TAB PO SCH ×2 (09:49→21:51)
[2023-02-18] MEDS: TICAGRELOR 90 MG TAB PO SCH ×2 (09:49→21:51)
[2023-02-18] MEDS: SODIUM CHLORIDE 0.9% 1,000 ML IV SCH (09:52)
[2023-02-18 10:03] LABS: Calcium 8.9 mg/dL (8.4-10.2); Potassium 4.6 mmol/L (3.5-5.1)
[2023-02-18 10:08] LABS: HCT 45.9 % (39.0-53.0); HGB 14.6 gm/dL (13.0-17.5); MCH 29.5 pg (25.0-35.0); MCHC 31.7 g/dL (31.0-37.0); MCV 93.2 fL (80.0-100.0); Mean Platelet Volume 8.7; Platelet Count 164 k/uL (150-450); RBC 4.93 m/uL (4.30-5.90); RDW 15.4 % (11.5-15.5); WBC 12.7 k/uL (3.8-10.6)
[2023-02-18] MEDS: ASPIRIN 81 MG PO SCH (10:34)
--- NOTE | 2023-02-18 12:00 | P.PN ---
Subjective Progress Note Date: 02/18/23 HISTORY OF PRESENT ILLNESS: This is an 87-year-old male who was admitted to the hospital secondary to STEMI. Patient underwent cardiac catheterization on 02/16/2023 revealing coronary artery disease with 70% proximal to mid LAD stenosis and 100% proximal RCA stenosis. Patient underwent PCI to the proximal to mid RCA with 2 drug-eluting stents. Further workup of proximal LAD lesion if patient continued to have significant angina. Patient examined this morning at the bedside. Patient denies any further episodes of chest pain or pressure. He denies shortness of breath. The patient states he had somewhat of a rough night as he felt he was hallucinating yesterday evening. He also reports that he was having shortness of breath overnight and believed it was secondary to nasal congestion. He states this has improved this morning. Telemetry reveals atrial fibrillation w ith a heart rate in the 90s. Echocardiogram revealing ejection fraction 30%. Creatinine improved today to 2.44. PHYSICAL EXAM: VITAL SIGNS: Reviewed. GENERAL: Well-developed in no acute distress. NECK: Supple. No JVD or thyromegaly LUNGS: Respirations even and unlabored. Lungs essentially clear to auscultation bilaterally. HEART: Irregualar rate and rhythm. S1 and S2 heard. EXTREMITIES: Normal range of motion. No clubbing or cyanosis. Peripheral pulses intact. No lower extremity edema ASSESSMENT: STEMI, status post PCI to proximal to mid RCA with 2 drug-eluting stents 70% stenosis to mid LAD, medically managed at this time, will consider i ntervention if patient has continued angina Ischemic cardiomyopathy, ejection fraction 30% Persistent atrial fibrillation, rate controlled Acute kidney injury, improving PLAN: Continue anticoagulation with Eliquis Continue Brilinta. Case management consulted for insurance coverage. Add aspirin 81 mg for 30 days Continue additional cardiac medications Monitor kidney function. Nephrology following Further recommendations pending patient's course Patient to follow up post discharge with Dr. Mccain Nurse practitioner note has been reviewed by physician. Signing provider agrees with the documented findings, assessment, and plan of care. Objective - Vital Signs Vital signs: Vital Signs Temp 98.4 F 02/18/23 08:00 Pulse 72 02/18/23 09:03 Resp 16 02/18/23 08:00 BP 146/84 02/18/23 08:00 Pulse Ox 98 02/18/23 08:54 FiO2 Intake & Output 02/17/23 02/18/23 02/18/23 18:59 06:59 18:59 Intake Total 1154 450 118 Output Total 200 550 600 Balance 925 -221 -798 Intake: IV 320 450 0.9 @ KVO 20 0.9 @75 300 450 Oral 834 118 Output: Urine 200 550 600 Other: Voiding Method Self-Catheterization Self-Catheterization Self-Catheterization # Voids 1 # Bowel Movements 1 0 - Labs CBC & Chem 7: 02/18/23 08:24 02/18/23 08:24 Labs: Abnormal Lab Results - Last 24 Hours (Table) 02/17/23 02/18/23 02/18/23 Range/Units 18:25 08:24 08:24 WBC 12.7 H (3.8-10.6) k/uL BUN (9-20) mg/dL Creatinine (0.66-1.25) mg/dL Glucose (74-99) mg/dL Troponin I 59.000 H* (0.000-0.034) ng/mL Urine Protein 1+ H (Negative) Urine Blood Moderate H (Negative) Ur Leukocyte Esterase Moderate H (Negative) Urine WBC 17 H (0-5) /hpf Urine Bacteria Moderate H (None) /hpf Urine Mucus Rare H (None) /hpf 02/18/23 Range/Units 08:24 WBC (3.8-10.6) k/uL BUN 37 H (9-20) mg/dL Creatinine 2.44 H (0.66-1.25) mg/dL Glucose 116 H (74-99) mg/dL Troponin I (0.000-0.034) ng/mL Urine Protein (Negative) Urine Blood (Negative) Ur Leukocyte Esterase (Negative) Urine WBC (0-5) /hpf Urine Bacteria (None) /hpf Urine Mucus (None) /hpf
--- NOTE | 2023-02-18 12:07 | P.PN ---
Subjective Progress Note Date: 02/18/23 Principal diagnosis: This is a 87-year-old male seen in consultation because of chronic kidney disease and possible acute kidney injury. He is followed up by a physician outside for his chronic kidney disease supposedly his creatinine was 1.6 at its highest. He came in with chest pain and underwent cardiac cath yesterday for 05/31/2023 and had a stent placed. An echocardiogram shows 30% ejection fraction He has had history of colon cancer and had been self catheterizing himself 4 times a day for urinary retention of unclear cause supposedly there was some postop complications after his colon cancer surgery. He is known with atrial fibrillation. This morning is feeling fine, he is pain-free and feels fairly well. No dizziness no nausea vomiting but had some diarrhea. The floor urine is documented at 7 and 50 mL, but since this morning is documented at 600 mL. Creatinine is down from a peak of 2. 64 to 2.44 this morning Objective - Vital Signs Vital signs: Vital Signs Temp 98.4 F 02/18/23 08:00 Pulse 72 02/18/23 09:03 Resp 16 02/18/23 08:00 BP 146/84 02/18/23 08:00 Pulse Ox 98 02/18/23 08:54 FiO2 Intake & Output 02/17/23 02/18/23 02/18/23 18:59 06:59 18:59 Intake Total 1154 450 118 Output Total 200 550 600 Balance 954 100 482 Intake: IV 320 450 0.9 @ KVO 20 0.9 @75 300 450 Oral 834 118 Output: Urine 200 550 600 Other: Voiding Method Self-Catheterization Self-Catheterization Self-Catheterization # Voids 1 # Bowel Movements 1 0 On exam awake alert oriented comfortable HEENT exam shows elevated JVD because of atrial fibrillation otherwise no facial asymmetry neck is supple Lungs are clear to auscultation good air entry Heart sounds unremarkable except for atrial fibrillation Abdomen soft nontender Extremity exam reveals trace edema Neurologically awake alert oriented - Labs CBC & Chem 7: 02/18/23 08:24 02/18/23 08:24 Labs: Abnormal Lab Results - Last 24 Hours (Table) 02/17/23 02/18/23 02/18/23 Range/Units 18:25 08:24 08:24 WBC 12.7 H (3.8-10.6) k/uL BUN (9-20) mg/dL Creatinine (0.66-1.25) mg/dL Glucose (74-99) mg/dL Troponin I 59.000 H* (0.000-0.034) ng/mL Urine Protein 1+ H (Negative) Urine Blood Moderate H (Negative) Ur Leukocyte Esterase Moderate H (Negative) Urine WBC 17 H (0-5) /hpf Urine Bacteria Moderate H (None) /hpf Urine Mucus Rare H (None) /hpf 02/18/23 Range/Units 08:24 WBC (3.8-10.6) k/uL BUN 37 H (9-20) mg/dL Creatinine 2.44 H (0.66-1.25) mg/dL Glucose 116 H (74-99) mg/dL Troponin I (0.000-0.034) ng/mL Urine Protein (Negative) Urine Blood (Negative) Ur Leukocyte Esterase (Negative) Urine WBC (0-5) /hpf Urine Bacteria (None) /hpf Urine Mucus (None) /hpf Assessment and Plan Assessment: Impression 1. Acute kidney injury secondary to acute IA as well as possible cardiac Related dye toxicity. Creatinine was 1.73 on admission went up to 2.64. Slight improvement to 2.44 2. History of chronic kidney disease Baseline creatinine 1.6 per patient no records available in the hospital. Followed up by nephrology outside. [facility] 3. History of neurogenic bladder with self-catheterization 4 times a day. 4. Atrial fibrillation chronic 5. Acute IA with cardiac catheterization and stent 02/16/2023 Recommendation 1. Maintain IV fluids normal saline at 75 mL an hour. 2. Expect renal function to improve. 3. Continue self-catheterization 4 times a day as he has been doing for's about 20 years. 4. Monitor labs
--- NOTE | 2023-02-18 12:54 | P.PN ---
Subjective Progress Note Date: 02/18/23 Patient is an 87-year-old male with hypertension, permanent A. fib on apixiban, and chronic kidney disease stage III who presented to the hospital with complaints of chest pain. In the emergency room he was hypotensive with blood pressure of 82/67, satting 92% on 2 L nasal cannula. Laboratory analysis was remarkable for BUN of 23, creatinine 1.73, alkaline phosphatase 2:30, bilirubin 1.9, troponin 0.092, and INR of 1.2. EKG showed ST segment elevation in leads 2, 3, aVF, & V3. Chest x-ray demonstrated borderline cardiomegaly with increased pulmonary vascularity. Patient was activated as a STEMI alert and was emergently taken to [facility]. He had a percutaneous intervention. The right radial approach with a drug-eluting stent placed to the RCA. He was subsequently admitted to the ICU. He did develop some acute kidney injury likely related to his contrast exposure. He was started on IV fluids. Nephrology was consulted. Imaging: Echocardiogram- ejection fraction 30%, severe concentric left ventricular hypertrophy, globally reduced left ventricular systolic function Renal ultrasound- Medical renal disease bilaterally, large 9 cm mass upper pole right kidney not consistent with simple cortical cysts. Markedly irregular urinary bladder. [facility] this [facility] closely Patient seen and examined at bedside. He is doing well. He denies any chest pain, shortness breath, nausea, vomiting. He is concerned about his kidneys. He has no other complaints currently. Vital signs reviewed General: nontoxic, no distress, appears at stated age Cardiovascular: S1S2 reg, no murmur, positive posterior tibial pulse bilateral, no JVD Lungs: CTA bilateral, no rhonchi, no rales , no accessory muscle use Abdominal: soft, nontender to palpation, no guarding, no appreciable organomegaly Ext: no gross muscle atrophy, no edema, no contractures Neuro: CN II-XI grossly intact, no focal neuro deficits Psych: Alert, oriented, appropriate affect Assessment: Acute ST segment elevated myocardial infarction V. fib arrest while in the emergency department requiring defibrillation 2 and initiation of amiodarone Ischemic cardiomyopathy with ejection fraction 30% Hypertension Permanent A. fib on Apixiban Acute kidney injury on Chronic kidney disease stage III Leukocytosis, likely reactive Cystic mass right kidney Thrombocytopenia, resolved Imaging: None new Data Review: AM vital signs are remarkable for a pulse of 82, respirations 16, blood pressure 146/84, O2 sat 98% on room air Labs reviewed and remarkable for white blood cell count 12.7, BUN 37, creatinine 2.44, glucose 16, troponin 59 Plan: -Continue 0.9% normal saline at 75 MLS per hour, monitor fluid status closely given cardiomyopathy -We'll need to discuss with cardiology if patient rolled require a LifeVest at discharge giving EF of less than 35% in the setting of ischemic cardiomyopathy and V. fib arrest 2 prior to stent -Continue to straight cath every 6 hours -Hold torsemide -Outpatient follow-up with the OR for his kidney lesion, he has been doing this consistently -Repeat creatinine in a.m. -Cardiology note reviewed: No additional recommendations at this time -Continue with Eliquis 2.5 mg twice daily, Lipitor 40 mg daily, and Brilinta 90 mg twice daily. DVT prophylaxis: eliquis Discussed with: Patient and nursing Anticipated discharge date: Pending Clinical Course Anticipated discharge place: home This dictation was prepared using [employer] voice recognition software. Though every attempt is made to correct errors during during dictation some may still exist. Objective - Vital Signs Vital signs: Vital Signs Temp 98.1 F 02/18/23 11:50 Pulse 86 02/18/23 11:50 Resp 17 02/18/23 11:50 BP 130/91 02/18/23 11:50 Pulse Ox 98 02/18/23 11:50 FiO2 Intake & Output 02/17/23 02/18/23 02/18/23 18:59 06:59 18:59 Intake Total 1154 450 118 Output Total 200 550 600 Balance 954 -100 -482 Intake: IV 320 450 0.9 @ KVO 20 0.9 @75 300 450 Oral 834 118 Output: Urine 200 550 600 Other: Voiding Method Self-Catheterization Self-Catheterization Self-Catheterization # Voids 1 # Bowel Movements 1 0 - Labs CBC & Chem 7: 02/18/23 08:24 02/18/23 08:24 Labs: Abnormal Lab Results - Last 24 Hours (Table) 02/17/23 02/18/23 02/18/23 Range/Units 18:25 08:24 08:24 WBC 12.7 H (3.8-10.6) k/uL BUN (9-20) mg/dL Creatinine (0.66-1.25) mg/dL Glucose (74-99) mg/dL Troponin I 59.000 H* (0.000-0.034) ng/mL Urine Protein 1+ H (Negative) Urine Blood Moderate H (Negative) Ur Leukocyte Esterase Moderate H (Negative) Urine WBC 17 H (0-5) /hpf Urine Bacteria Moderate H (None) /hpf Urine Mucus Rare H (None) /hpf 02/18/23 Range/Units 08:24 WBC (3.8-10.6) k/uL BUN 37 H (9-20) mg/dL Creatinine 2.44 H (0.66-1.25) mg/dL Glucose 116 H (74-99) mg/dL Troponin I (0.000-0.034) ng/mL Urine Protein (Negative) Urine Blood (Negative) Ur Leukocyte Esterase (Negative) Urine WBC (0-5) /hpf Urine Bacteria (None) /hpf Urine Mucus (None) /hpf
[2023-02-18] MEDS: ATORVASTATIN 40 MG TAB PO SCH (21:51)
[2023-02-19 06:04] LABS: HCT 43.2 % (39.0-53.0); HGB 13.7 gm/dL (13.0-17.5); MCH 29.1 pg (25.0-35.0); MCHC 31.8 g/dL (31.0-37.0); MCV 91.5 fL (80.0-100.0); Mean Platelet Volume 8.7; Platelet Count 120 k/uL (150-450); RBC 4.72 m/uL (4.30-5.90); RDW 15.7 % (11.5-15.5); WBC 9.4 k/uL (3.8-10.6)
[2023-02-19 06:14] LABS: Calcium 8.5 mg/dL (8.4-10.2); Potassium 4.1 mmol/L (3.5-5.1)
[2023-02-19] MEDS: IPRATROPIUM 0.5 MG/2.5 ML NEBU INHALATION SCH ×3 (09:15→16:07)
[2023-02-19] MEDS: APIXABAN 2.5 MG TABLET PO SCH (09:41)
[2023-02-19] MEDS: METOPROLOL TARTRATE 25 MG TAB PO SCH (09:41)
[2023-02-19] MEDS: TICAGRELOR 90 MG TAB PO SCH (09:41)
[2023-02-19] MEDS: allopurinoL 100 MG TAB PO SCH (09:41)
[2023-02-19] MEDS: ASPIRIN 81 MG PO SCH (09:41)
[2023-02-19 09:56] VITALS: RESP 16
--- NOTE | 2023-02-19 11:54 | P.PN ---
Subjective Patient is seen for follow-up for acute kidney injury and top of chronic kidney disease. Status post cardiac cath Renal function has been improving with serum creatinine down to 2.0 today There are plans for discharge. Objective - Vital Signs Vital signs: Vital Signs Temp 97.4 F L 02/19/23 09:40 Pulse 88 02/19/23 09:40 Resp 16 02/19/23 09:40 BP 144/78 02/19/23 09:40 Pulse Ox 97 02/19/23 11:12 FiO2 Intake & Output 02/18/23 02/19/23 02/19/23 18:59 06:59 18:59 Intake Total 836 118 Output Total 925 325 475 Balance -89 -325 -254 Intake: Oral 836 118 Output: Urine 925 325 475 Other: Voiding Method Self-Catheterization Self-Catheterization Self-Catheterization - Exam Patient is awake, comfortable, alert oriented 3 Examination of the heart S1 and S2 Examination of the lungs bilateral breath sounds are heard Abdomen is soft nontender Examination of lower extremity shows edema 1+ bilaterally HEAVY MACHINERY ASSEMBLER exam grossly intact - Labs CBC & Chem 7: 02/19/23 05:20 02/19/23 05:20 Labs: Abnormal Lab Results - Last 24 Hours (Table) 02/19/23 02/19/23 Range/Units 05:20 05:20 RDW 15.7 H (11.5-15.5) % Plt Count 120 L (150-450) k/uL Chloride 110 H (98-107) mmol/L Carbon Dioxide 21 L (22-30) mmol/L BUN 33 H (9-20) mg/dL Creatinine 2.08 H (0.66-1.25) mg/dL Assessment and Plan Assessment: 1. Acute kidney injury secondary to acute RI as well as possible cardiac Related dye toxicity. Renal function has improved 2. History of chronic kidney disease Baseline creatinine 1.6 per patient no records available in the hospital. Followed up by nephrology outside. [facility] 3. History of neurogenic bladder with self-catheterization 4 times a day. 4. Atrial fibrillation chronic 5. Acute RI with cardiac catheterization status post stent to RCA Plan: Stable for discharge from nephrology standpoint. Follow-up as outpatient with his primary natural gas field processing supervisor
[2023-02-19 13:10] VITALS: BMI 27.8
--- NOTE | 2023-02-19 13:20 | P.PN ---
Subjective Progress Note Date: 02/19/23 HISTORY OF PRESENT ILLNESS: This is an 87-year-old male who was admitted to the hospital secondary to STEMI. Patient underwent cardiac catheterization on 02/16/2023 revealing coronary artery disease with 70% proximal to mid LAD stenosis and 100% proximal RCA stenosis. Patient underwent PCI to the proximal to mid RCA with 2 drug-eluting stents. Further workup of proximal LAD lesion if patient continued to have significant angina. Patient examined this morning at the bedside. Patient denies any further episodes of chest pain or pressure. He denies shortness of breath. The patient states he had somewhat of a rough night as he felt he was hallucinating yesterday evening. He also reports that he was having shortness of breath overnight and believed it was secondary to nasal congestion. He states this has improved this morning. Telemetry reveals atrial fibrillation w ith a heart rate in the 90s. Echocardiogram revealing ejection fraction 30%. Creatinine improved today to 2.44. 02/19 Patient is seen today in follow-up on the cardiac stepdown unit. He denies havi ng any chest pain, shortness of breath, lightheadedness or dizziness. He has been ambulatory without any symptoms. Vital signs stable. Kidney function is improving with BUN 33 creatinine 2.08, potassium is 4.1. Platelet count is 120. Case has been are reviewed by Dr. Peña and Dr. PIO Oneil and no life vest is necessary at this time. Patient will be started on a low-dose ARB prior to discharge. Discussed follow-up with the patient and he plans to follow-up with his primary billposter at [place] and has an appointment in March. Requested the patient obtain an earlier appointment and if that is not available, patient may follow-up in our office. PHYSICAL EXAM: VITAL SIGNS: Reviewed. GENERAL: Well-developed in no acute distress. NECK: Supple. No JVD or thyromegaly LUNGS: Respirations even and unlabored. Lungs essentially clear to auscultation bilaterally. HEART: Irregualar rate and rhythm. S1 and S2 heard. EXTREMITIES: Normal range of motion. No clubbing or cyanosis. Peripheral pulses intact. No lower extremity edema ASSESSMENT: STEMI, status post PCI to proximal to mid RCA with 2 drug-eluting stents 70% stenosis to mid LAD, medically managed at this time, will consider intervention if patient has continued angina Ischemic cardiomyopathy, ejection fraction 30% Persistent atrial fibrillation, rate controlled Acute kidney injury, improving 2 episodes of ventricular fibrillation receiving shocks to resuscitate PLAN: Continue current cardiac medications aspirin 81 mg for 30 days Patient is cleared for discharge and may follow-up with his primary billposter in 1 week or if an appointment is not available, patient may follow-up with Dr. Mccain Nurse practitioner note has been reviewed by physician. Signing provider agrees with the documented findings, assessment, and plan of care. Objective - Vital Signs Vital signs: Vital Signs Temp 97.8 F 02/19/23 04:00 Pulse 76 02/19/23 04:00 Resp 18 02/19/23 04:00 BP 138/94 02/19/23 04:00 Pulse Ox 97 02/19/23 04:00 FiO2 Intake & Output 02/18/23 02/19/23 02/19/23 18:59 06:59 18:59 Intake Total 836 118 Output Total 925 325 Balance -89 -325 118 Intake: Oral 836 118 Output: Urine 925 325 Other: Voiding Method Self-Catheterization Self-Catheterization - Labs CBC & Chem 7: 02/19/23 05:20 02/19/23 05:20 Labs: Abnormal Lab Results - Last 24 Hours (Table) 02/18/23 02/18/23 02/18/23 Range/Units 08:24 08:24 08:24 WBC 12.7 H (3.8-10.6) k/uL RDW (11.5-15.5) % Plt Count (150-450) k/uL Chloride (98-107) mmol/L Carbon Dioxide (22-30) mmol/L BUN 37 H (9-20) mg/dL Creatinine 2.44 H (0.66-1.25) mg/dL Glucose 116 H (74-99) mg/dL Troponin I 59.000 H* (0.000-0.034) ng/mL 02/19/23 02/19/23 Range/Units 05:20 05:20 WBC (3.8-10.6) k/uL RDW 15.7 H (11.5-15.5) % Plt Count 120 L (150-450) k/uL Chloride 110 H (98-107) mmol/L Carbon Dioxide 21 L (22-30) mmol/L BUN 33 H (9-20) mg/dL Creatinine 2.08 H (0.66-1.25) mg/dL Glucose (74-99) mg/dL Troponin I (0.000-0.034) ng/mL
--- NOTE | 2023-02-19 14:31 | P.DS ---
Providers Date of admission: 02/16/23 06:44 Expected date of discharge: 02/19/23 Attending physician: Natalio Elise MD Consults: 02/16/23 06:43 Consult Physician Stat Consulting Provider: Compa Mccain Consult Reason/Comments: stemi Do you want consulting provider notified?: Already Contacted 02/16/23 11:22 Consult Physician Routine Consulting Provider: [facility] Consult Reason/Comments: Post Interventional Patient Do you want consulting provider notified?: Already Contacted 02/17/23 12:10 Consult Physician Routine Consulting Provider: Ericka Longo Consult Reason/Comments: elevated creat Do you want consulting provider notified?: Yes Primary care physician: Stated None Hospital Course: Discharge Diagnosis: Acute ST segment elevated myocardial infarction V. fib arrest while in the emergency department requiring defibrillation 2 and initiation of amiodarone Ischemic cardiomyopathy with ejection fraction 30% Hypertension Permanent A. fib on Apixiban Acute kidney injury on Chronic kidney disease stage III Leukocytosis, likely reactive Cystic mass right kidney Thrombocytopenia, resolved Hospital Course: Patient is an 87-year-old male with hypertension, permanent A. fib on apixiban, and chronic kidney disease stage III who presented to the hospital with complaints of chest pain. In the emergency room he was hypotensive with blood pressure of 82/67, satting 92% on 2 L nasal cannula. Laboratory analysis was remarkable for BUN of 23, creatinine 1.73, alkaline phosphatase 2:30, bilirubin 1.9, troponin 0.092, and INR of 1.2. EKG showed ST segment elevation in leads 2, 3, aVF, & V3. Chest x-ray demonstrated borderline cardiomegaly with increased pulmonary vascularity. Patient was activated as a STEMI alert and was emergently taken to [facility]. He had a percutaneous intervention. The right radial approach with a drug-eluting stent placed to the RCA. He was subse quently admitted to the ICU. He did develop some acute kidney injury likely related to his contrast exposure. He was started on IV fluids. Nephrology was consulted. His renal function slowly improved. He was followed by cardiology on a daily basis. His blood pressures remained well controlled. Case was discussed with cardiology and they recommended beta shaunna and ARB. They did not recommend LifeVest on discharge. Patient ideally should have Aldactone ordered as well, but given his recovering renal function I will hold off on this and have him follow with his [employer] pressroom supervisor and steam tank operator. Patient was doing well and was asymptomatic. His renal function slowly improved. He was determined stable for discharge. Follow-up: [facility] steam tank operator in 1 week, [facility] pressroom supervisor in 2-3 weeks. Primary care physician through the [facility] in 1 week. Patient will not require aspirin therapy as he is on Eliquis and antiplatelet. Check daily weights and blood pressures. Medications: 1,, atorvastatin, losartan. Metoprolol increased to 3 times a day Patient seen and examined at bedside. Denies any chest pain, shortness breath, nausea, vomiting. We discussed taking his blood pressure daily as well as await states he already does this and [facility]. All questions were answered. Vital signs reviewed and stable. General: nontoxic, no distress, appears at stated age Derm: warm, dry Head: atraumatic, normocephalic, symmetric Eyes: EOMI, no lid lag, anicteric sclera Mouth: no lip lesion, mucus membranes moist Cardiovascular: S1S2 reg, no murmur, positive posterior tibial pulse bilateral, Lungs: CTA bilateral, no rhonchi, no rales , no accessory muscle use Abdominal: soft, nontender to palpation, no guarding, no appreciable organomegaly Ext: no gross muscle atrophy, no edema, no contractures Neuro: CN II-XI grossly intact, no focal neuro deficits Psych: Alert, oriented, appropriate affect A total of 35 minutes of time were spent preparing this complex discharge summary. Patient was discharged on 02/19/23. This dictation was prepared using [employer] voice recognition software. Though every attempt is made to correct errors during during dictation some may still exist. Patient Condition at Discharge: Stable Plan - Discharge Summary Discharge Rx Participant: Yes New Discharge Prescriptions: New Apixaban [Eliquis] 2.5 mg PO BID tab Ticagrelor [Brilinta] 90 mg PO BID #60 tab Losartan [Cozaar] 12.5 mg PO DAILY #30 tab Atorvastatin [Lipitor] 40 mg PO HS #30 tab Metoprolol Tartrate [Lopressor] 25 mg PO TID #90 tab Nitroglycerin Sl Tabs [Nitrostat] 0.4 mg SUBLINGUAL Q5M PRN #7 tab PRN Reason: Chest Pain Continue Torsemide [Demadex] 10 mg PO BID@1000,2200 allopurinoL [Zyloprim] 200 mg PO DAILY Netarsudil Mesylate [Rhopressa] 1 drop BOTH EYES HS Latanoprost [Latanoprost 0.005%] 1 drop BOTH EYES HS Dorzolamide-Timol 2.23%/0.68% [Cosopt] 1 drop BOTH EYES DIRECTED Tiotropium 2.5 Mcg/Puff [Spiriva Respimat 2.5 Mcg] 2 puff INHALATION RT-DAILY Discontinued Metoprolol Tartrate [Lopressor] 25 mg PO BID Apixaban [Eliquis] 2.5 mg PO BID Discharge Medication List Dorzolamide-Timol 2.23%/0.68% [Cosopt] 1 drop BOTH EYES DIRECTED 02/16/23 [History] Latanoprost [Latanoprost 0.005%] 1 drop BOTH EYES HS 02/16/23 [History] Tiotropium 2.5 Mcg/Puff [Spiriva Respimat 2.5 Mcg] 2 puff INHALATION RT-DAILY 02/16/23 [History] Torsemide [Demadex] 10 mg PO BID@1000,2200 02/16/23 [History] allopurinoL [Zyloprim] 200 mg PO DAILY 02/16/23 [History] Netarsudil Mesylate [Rhopressa] 1 drop BOTH EYES HS 02/17/23 [History] Ticagrelor [Brilinta] 90 mg PO BID #60 tab 02/18/23 [Rx] Apixaban [Eliquis] 2.5 mg PO BID tab 02/19/23 [Rx] Atorvastatin [Lipitor] 40 mg PO HS #30 tab 02/19/23 [Rx] Losartan [Cozaar] 12.5 mg PO DAILY #30 tab 02/19/23 [Rx] Metoprolol Tartrate [Lopressor] 25 mg PO TID #90 tab 02/19/23 [Rx] Nitroglycerin Sl Tabs [Nitrostat] 0.4 mg SUBLINGUAL Q5M PRN #7 tab 02/19/23 [Rx] Follow up Appointment(s)/Referral(s): Compa Mccain MD [STAFF PHYSICIAN] - 1 Week None,Stated [Primary Care Provider] - 1-2 days Patient Instructions/Handouts: *Surgery [facility] - After Heart Catheterization - Client Technical Specialist Instructions Activity/Diet/Wound Care/Special Instructions: Activity: as tolerated Diet: Heart healthy, 2 gram sodium. Special Instructions: Please take this discharge packet [facility] Please follow-up with your steam tank operator through the [facility] as soon as possible. Please call their office and tell them you had a S T-segment elevated myocardial infarction with stent placement. Please follow-up with your [facility] pressroom supervisor in 2-3 weeks You should have a recheck of your kidney function with lab work in 1-2 weeks. Seek emergency care with recurrent chest pain. Continue to monitor your blood pressures once daily and daily weights. Make a log to bring to your follow-up appointments. Discharge Disposition: HOME SELF-CARE
[2023-02-19 15:26] VITALS: BP 129/90; PULSE 90; TEMP 97.6
[2023-02-19] MEDS ORDERED: METOPROLOL TARTRATE 25 MG TAB PO SCH (16:00)
[2023-02-20] MEDS ORDERED: LOSARTAN 25 MG TAB PO SCH (09:00)
== END 2023-02-19 17:00 | disposition home or self-care (01) | DRG 246 ==
LOC: EC 06:21 → 2SICU 06:44 → 3SCARD 02-17 14:52
PROVIDERS: ADMIT Internal Medicine; ATTEND Internal Medicine
PROC: B240ZZ3 Ultrasonography of Single Coronary Artery, Intravascular (ICD-10-PCS; principal; 2023-02-16 07:04)
PROC: 02C03ZZ Extirpation of Matter from Coronary Artery, One Artery, Percutaneous Approach (ICD-10-PCS; principal; 2023-02-16 07:04)
PROC: 4A023N7 Measurement of Cardiac Sampling and Pressure, Left Heart, Percutaneous Approach (ICD-10-PCS; principal; 2023-02-16 07:04)
PROC: B2111ZZ Fluoroscopy of Multiple Coronary Arteries using Low Osmolar Contrast (ICD-10-PCS; principal; 2023-02-16 07:04)
PROC: 027035Z Dilation of Coronary Artery, One Artery with Two Drug-eluting Intraluminal Devices, Percutaneous Approach (ICD-10-PCS; principal; 2023-02-16 07:04)
DX: I21.29 ST elevation (STEMI) myocardial infarction involving other sites (principal); I46.2 Cardiac arrest due to underlying cardiac condition; I49.01 Ventricular fibrillation; I48.21 Permanent atrial fibrillation; N17.9 Acute kidney failure, unspecified; I12.9 Hypertensive chronic kidney disease with stage 1 through stage 4 chronic kidney disease, or unspecified chronic kidney disease; D69.6 Thrombocytopenia, unspecified; D72.829 Elevated white blood cell count, unspecified; R33.9 Retention of urine, unspecified; I25.10 Atherosclerotic heart disease of native coronary artery without angina pectoris; I25.5 Ischemic cardiomyopathy; N31.9 Neuromuscular dysfunction of bladder, unspecified; N18.30 Chronic kidney disease, stage 3 unspecified; N28.1 Cyst of kidney, acquired; Z79.01 Long term (current) use of anticoagulants; Z79.899 Other long term (current) drug therapy; Z82.49 Family history of ischemic heart disease and other diseases of the circulatory system; Z85.038 Personal history of other malignant neoplasm of large intestine; Z87.891 Personal history of nicotine dependence
CPT/HCPCS: 36415; 71045; 76770; 80048; 80053; 80061; 81001; 83036; 83735; 84443; 84484; 85025; 85027; 85610; 85730; 92973; 92978; 93306; 93454; 94640; 94760; 96374; 96375; 99285

== ENCOUNTER 2023-10-21 13:39 | Inpatient (IN) | payer MEDICARE ==
[2023-10-21 14:15] LABS: Basophils % (A) 0 %; Eosinophils # (A) 0.1 k/uL (0-0.7); Eosinophils % (A) 1 %; HCT 39.9 % (39.0-53.0); Hypochromasia Slight; Lymphocytes # (A) 1.3 k/uL (1.0-4.8); Lymphocytes % (A) 15 %; MCHC 32.4 g/dL (31.0-37.0); MCV 98.5 fL (80.0-100.0); Macrocytosis Slight; Mean Platelet Volume 9.1; Monocytes # (A) 0.9 k/uL (0-1.0); Monocytes % (A) 10 %; Neutrophils # (A) 6.1 k/uL (1.3-7.7); Neutrophils % (A) 71 %; Platelet Count 133 k/uL (150-450); RBC 4.05 m/uL (4.30-5.90); RDW 15.3 % (11.5-15.5); WBC 8.6 k/uL (3.8-10.6)
[2023-10-21 14:25] LABS: ALT 29 U/L (4-49); AST 35 U/L (17-59); African American GFR (CKD) 38 (>60 ml/min/1.73 sqM); Albumin 3.8 g/dL (3.5-5.0); Alkaline Phosphatase 167 U/L (38-126); Anion Gap 12 mmol/L; Blood Urea Nitrogen 40 mg/dL (9-20); Calcium 8.9 mg/dL (8.4-10.2); Carbon Dioxide 22 mmol/L (22-30); Chloride 106 mmol/L (98-107); Glucose 125 mg/dL (74-99); Non-African American GFR(CKD) 33 (>60 ml/min/1.73 sqM); Potassium 3.9 mmol/L (3.5-5.1); Sodium 140 mmol/L (137-145); Total Bilirubin 1.2 mg/dL (0.2-1.3); Total Protein 6.5 g/dL (6.3-8.2)
[2023-10-21 14:28] LABS: INR 1.2 (<1.2); Prothrombin Time 13.1 sec (10.0-12.5)
--- NOTE | 2023-10-21 14:37 | ED ---
Upper Extremity HPI - General Chief Complaint: Extremity Injury, Upper Stated Complaint: arm bleeding Time Seen by Provider: 10/21/23 13:50 Source: patient Mode of arrival: ambulatory Limitations: no limitations - History of Present Illness Initial Comments: 88-year-old male with a history of atrial fibrillation who is on Plavix and Eliquis who had a cardiac catheterization done and a right radial artery on February 16 of this year who started developing a lump over the area in May of this year was diagnosed subsequently with a radial artery aneurysm. Patient presents today with the onset of bleeding from the site approximately 1 hour prior to arrival. A large amount of blood clot was extruded from the area he demonstrates active bleeding per family. No trauma reported no other complaints of shortness breath fevers chills sweats dizziness. Additionally he started developing evidence of some cognitive help hematoma left eye yesterday no defi nitive trauma known. MD Complaint: Injury to:: right, forearm, wrist - Related Data Home Medications Medication Instructions Recorded Confirmed Dorzolamide-Timol 2.23%/0.68% 1 drop BOTH EYES DIRECTED 02/16/23 02/16/23 [Cosopt] Latanoprost [Latanoprost 0.005%] 1 drop BOTH EYES HS 02/16/23 02/16/23 Tiotropium 2.5 Mcg/Puff [Spiriva 2 puff INHALATION RT-DAILY 02/16/23 02/16/23 Respimat 2.5 Mcg] Torsemide [Demadex] 10 mg PO BID@1000,2200 02/16/23 02/16/23 allopurinoL [Zyloprim] 200 mg PO DAILY 02/16/23 02/16/23 Netarsudil Mesylate [Rhopressa] 1 drop BOTH EYES HS 02/17/23 02/17/23 Previous Rx's Medication Instructions Recorded Ticagrelor [Brilinta] 90 mg PO BID #60 tab 02/18/23 Apixaban [Eliquis] 2.5 mg PO BID tab 02/19/23 Atorvastatin [Lipitor] 40 mg PO HS #30 tab 02/19/23 Losartan [Cozaar] 12.5 mg PO DAILY #30 tab 02/19/23 Metoprolol Tartrate [Lopressor] 25 mg PO TID #90 tab 02/19/23 Nitroglycerin Sl Tabs [Nitrostat] 0.4 mg SUBLINGUAL Q5M PRN #7 tab 02/19/23 Allergies Allergy/AdvReac Type Severity Reaction Status Date / Time Sulfa (Sulfonamide AdvReac Unknown Verified 10/21/23 13:55 Antibiotics) Review of Systems ROS Statement: Those systems with pertinent positive or pertinent negative responses have been documented in the HPI. ROS Other: All systems not noted in ROS Statement are negative. Past Medical History Past Medical History: Atrial Fibrillation, Cancer Additional Past Medical History / Comment(s): colon ca 2003 with chemo and surgery, gout, right drop foot, pt self caths, History of Any Multi-Drug Resistant Organisms: None Reported Past Surgical History: Cholecystectomy Additional Past Surgical History / Comment(s): TRIP; abd surgery Past Anesthesia/Blood Transfusion Reactions: No Reported Reaction Past Psychological History: No Psychological Hx Reported Smoking Status: Former smoker Past Alcohol Use History: None Reported Past Drug Use History: None Reported - Past Family History Father Family Medical History: Myocardial Infarction ([place]) General Exam - General Exam Comments Initial Comments: This a well developed well-nourished awake alert oriented 4 male Limitations: no limitations General appearance: alert, anxious Head exam: Present: atraumatic, normocephalic, normal inspection Eye exam: Present: PERRL, EOMI, other (No conjunctival hematoma left eye). Absent: scleral icterus, conjunctival injection, periorbital swelling Pupils: Present: normal accommodation ENT exam: Present: normal exam, mucous membranes moist Neck exam: Present: normal inspection, full ROM, other (Genitourinary bruits). Absent: tenderness, meningismus, lymphadenopathy Respiratory exam: Present: normal lung sounds bilaterally. Absent: respiratory distress, wheezes, rales, rhonchi, stridor Cardiovascular Exam: Present: irregular rhythm. Absent: systolic murmur, diastolic murmur, rubs, gallop, clicks GI/Abdominal exam: Present: soft, normal bowel sounds. Absent: distended, tenderness, guarding, rebound, rigid Extremities exam: Present: full ROM, normal capillary refill, other (Examination of the right wrist demonstrates a large hematoma with blood clot that was exuded active bleeding is noted at this time. He pressure dressing was applied reexamination demonstrates persistent bleeding.). Absent: tenderness, pedal edema, joint swelling, calf tenderness Back exam: Present: normal inspection Neurological exam: Present: alert, oriented X3, CN II-XII intact Psychiatric exam: Present: normal affect, normal mood Skin exam: Present: warm, dry, normal color. Absent: intact, rash Course Vital Signs 10/21/23 10/21/23 13:50 14:03 Temperature 97.0 F L Pulse Rate 80 76 Respiratory 18 18 Rate Blood Pressure 120/80 125/94 O2 Sat by Pulse 99 100 Oximetry Medical Decision Making - Medical Decision Making I did contact Dr. Luna from vascular surgery and did explain the situation the patient will be taken to the operating room for repair of the suspected pseudoaneurysm. I did discuss the case with Dr. Roberts from anesthesiology. The OR team has been called in. I did discuss the case with the patient and his .Was pt. sent in by a medical professional or institution (, PA, CIRCUIT WALKER, urgent care, hospital, or [facility]...) When possible be specific @ -No Did you speak to anyone other than the patient for history (EMS, parent, family, police, friend...)? What history was obtained from this source @ -Since Did you review nursing and triage notes (agree or disagree)? Why? @ -I reviewed and agree with nursing and triage notes Were old charts reviewed (outside hosp., previous admission, EMS record, old EKG, old radiological studies, urgent care reports/EKG's, [facility] records)? Report findings @ -February 2023 intervention report reviewed old charts were reviewed Differential Diagnosis (chest pain, altered mental status, abdominal pain women, abdominal pain men, vaginal bleeding, weakness, fever, dyspnea, syncope, headac he, dizziness, GI bleed, back pain, seizure, CVA, palpatations, mental health, musculoskeletal)? @ -Bleeding renal artery aneurysm EKG interpreted by me (3pts min.). @ -As above EKG interpreted by me for for ablation rate 73 QRS duration 98 QT since QTC 399/425 left exodeviation possible anterior myocardial infarction pattern is nonspecific. X-rays interpreted by me (1pt min.). @ -None done CT interpreted by me (1pt min.). @ -None done U/S interpreted by me (1pt. min.). @ -None done What testing was considered but not performed or refused? (CT, X-rays, U/S, labs)? Why? @ -None What meds were considered but not given or refused? Why? @ -None Did you discuss the management of the patient with other professionals (professionals i.e. , PA, CIRCUIT WALKER, lab, RT, psych nurse, hospital social worker, child support officer, teacher, disability insurance hearing officer, case aide)? Give summary @ -Dr. Luna and Dr. Roberts Was smoking cessation discussed for >3mins.? @ -No Was critical care preformed (if so, how long)? @ -31 minutes Were there social determinants of health that impacted care today? How? (Homelessness, low income, unemployed, alcoholism, drug addiction, transportation, low edu. Level, literacy, decrease access to med. care, [facility], rehab)? @ -No Was there de-escalation of care discussed even if they declined (Discuss DNR or withdrawal of care, Hospice)? DNR status @ -No What co-morbidities impacted this encounter? (DM, HTN, Smoking, COPD, CAD, Cancer, CVA, ARF, Chemo, Hep., AIDS, mental health diagnosis, sleep apnea, morbid obesity)? @ -Or fibrillation, hypertension, CAD, anticoagulation therapy Was patient admitted / discharged? Hospital course, mention meds given and route, prescriptions, significant lab abnormalities, going to OR and other pertinent info. @ -hospital course was admitted and taken to the operating room for repair of the suspected pseudoaneurysm with active bleeding Undiagnosed new problem with uncertain prognosis? @ -Bleeding aneurysm Drug Therapy requiring intensive monitoring for toxicity (Heparin, Nitro, Insu nori, Cardizem)? @ -No Were any procedures done? @ -No Diagnosis/symptom? @ -Bleeding right radial artery pseudoaneurysm Acute, or Chronic, or Acute on Chronic? @ -Acute Uncomplicated (without systemic symptoms) or Complicated (systemic symptoms)? @ -Located Side effects of treatment? @ -No Exacerbation, Progression, or Severe Exacerbation? @ -No Poses a threat to life or bodily function? How? (Chest pain, [place], [place], pneumonia, PE, COPD, DKA, ARF, appy, cholecystitis, CVA, Diverticulitis, Homicidal, Suicidal, threat to staff... and all critical care pts) @ -Potential, active bleeding from the radial artery pseudoaneurysm - Lab Data Result diagrams: 10/21/23 13:58 10/21/23 13:58 Lab Results 10/21/23 10/21/23 10/21/23 Range/Units 13:58 13:58 14:00 WBC 8.6 (3.8-10.6) k/uL RBC 4.05 L (4.30-5.90) m/uL Hgb 13.0 (13.0-17.5) gm/dL Hct 39.9 (39.0-53.0) % MCV 98.5 (80.0-100.0) fL MCH 32.0 (25.0-35.0) pg MCHC 32.4 (31.0-37.0) g/dL RDW 15.3 (11.5-15.5) % Plt Count 133 L (150-450) k/uL MPV 9.1 Neutrophils % 71 % Lymphocytes % 15 % Monocytes % 10 % Eosinophils % 1 % Basophils % 0 % Neutrophils # 6.1 (1.3-7.7) k/uL Lymphocytes # 1.3 (1.0-4.8) k/uL Monocytes # 0.9 (0-1.0) k/uL Eosinophils # 0.1 (0-0.7) k/uL Basophils # 0.0 (0-0.2) k/uL Hypochromasia Slight Macrocytosis Slight Sodium 140 (137-145) mmol/L Potassium 3.9 (3.5-5.1) mmol/L Chloride 106 (98-107) mmol/L Carbon Dioxide 22 (22-30) mmol/L Anion Gap 12 mmol/L BUN 40 H (9-20) mg/dL Creatinine 1.80 H (0.66-1.25) mg/dL Est GFR (CKD-EPI)AfAm 38 (>60 ml/min/1.73 sqM) Est GFR (CKD-EPI)NonAf 33 (>60 ml/min/1.73 sqM) Glucose 125 H (74-99) mg/dL Calcium 8.9 (8.4-10.2) mg/dL Total Bilirubin 1.2 (0.2-1.3) mg/dL AST 35 (17-59) U/L ALT 29 (4-49) U/L Alkaline Phosphatase 167 H (38-126) U/L Total Protein 6.5 (6.3-8.2) g/dL Albumin 3.8 (3.5-5.0) g/dL Blood Type Recheck No Previous Record Bld Type Recheck Status CABO Indicated Spec Expiration Date 10/24/2023 - 2299 - EKG Data EKG Comments: EKG interpreted by me atrial fibrillation rate 73 QRS duration 98 QT since QTC 399/425 left exodeviation evidence of anterior nonspecific changes Critical Care Time Critical Care Time: Yes Total Critical Care Time: 31 Disposition Clinical Impression: Radial artery aneurysm, right, Active bleeding Disposition: ADMITTED IP TO THIS [facility] Condition: Serious Referrals: None,Stated [Primary Care Provider] - 1-2 days Decision Date: 10/21/23 Decision Time: 14:37
[2023-10-21] MEDS ORDERED: MIDAZOLAM 2 MG/2 ML VIAL ONE (15:32)
[2023-10-21] MEDS ORDERED: LACTATED RINGERS 1,000 ML IV ONE ×2 (15:32→16:38)
[2023-10-21] MEDS ORDERED: SODIUM CHLORIDE 0.9% 50 ML with ceFAZolin 2,000 MG IV ONE ×2 (15:32)
[2023-10-21] MEDS ORDERED: KETAMINE HCL IN 0.9 % NACL 50 MG/5 ML SYRINGE ONE (15:32)
[2023-10-21] MEDS ORDERED: PROPOFOL 10 MG/ML 20 ML VIAL IV ONE (15:32)
[2023-10-21] MEDS ORDERED: fentaNYL (PF) 50 MCG/ML 2 ML AMP ONE (15:32)
--- NOTE | 2023-10-21 15:45 | P.HPIHPCON ---
History of Present Illness H&P Date: 10/21/23 Chief Complaint: Bleeding pseudoaneurysm right upper extremity. Patient is an 88-year-old male who in May underwent cardiac catheterization via right radial artery approach at [facility]. This was done emergently and patient underwent cardiac stenting. Patient does live in [place] and gets essentially all of his medical care at the [facility] in [place]. Upon questioning the [facility] and a few weeks ago contacted him and was planning on scheduling elective surgical repair. Earlier today the patient's pseudoaneurysm ruptured at which time he presented to the emergency department. Direct pressure was held and the bleeding has ceased. Patient denies any numbness or motor dysfunction of the right hand. Consent for Procedure: I have explained the operation/procedure to the patient, including the risks, benefits, side effects, alternative therapies (including not receiving the proposed treatment or service), the likelihood of the patient achieving his/her goals, and potential recuperation problems for the procedure/sedation/analgesia, as well as any blood products, if indicated. I also explained to the patient the risks, benefits and side effects of the alternatives, as well as the risks related to not receiving the proposed procedure, care, treatment, or services. Past Medical History Past Medical History: Atrial Fibrillation, Cancer Additional Past Medical History / Comment(s): colon ca 2002 with chemo and surgery, gout, right drop foot, pt self caths, History of Any Multi-Drug Resistant Organisms: None Reported Past Surgical History: Cholecystectomy Additional Past Surgical History / Comment(s): TRIP; abd surgery Past Anesthesia/Blood Transfusion Reactions: No Reported Reaction Past Psychological History: No Psychological Hx Reported Smoking Status: Former smoker Past Alcohol Use History: None Reported Past Drug Use History: None Reported - Past Family History Father Family Medical History: Myocardial Infarction ([place]) Medications and Allergies Home Medications Medication Instructions Recorded Confirmed Type Dorzolamide-Timol 2.23%/0.68% 1 drop BOTH EYES DIRECTED 02/16/23 02/16/23 History [Cosopt] Latanoprost [Latanoprost 0.005%] 1 drop BOTH EYES HS 02/16/23 02/16/23 History Tiotropium 2.5 Mcg/Puff [Spiriva 2 puff INHALATION RT-DAILY 02/16/23 02/16/23 History Respimat 2.5 Mcg] Torsemide [Demadex] 10 mg PO BID@1000,2200 02/16/23 02/16/23 History allopurinoL [Zyloprim] 200 mg PO DAILY 02/16/23 02/16/23 History Netarsudil Mesylate [Rhopressa] 1 drop BOTH EYES HS 02/17/23 02/17/23 History Ticagrelor [Brilinta] 90 mg PO BID #60 tab 02/18/23 Rx Apixaban [Eliquis] 2.5 mg PO BID tab 02/19/23 Rx Atorvastatin [Lipitor] 40 mg PO HS #30 tab 02/19/23 Rx Losartan [Cozaar] 12.5 mg PO DAILY #30 tab 02/19/23 Rx Metoprolol Tartrate [Lopressor] 25 mg PO TID #90 tab 02/19/23 Rx Nitroglycerin Sl Tabs [Nitrostat] 0.4 mg SUBLINGUAL Q5M PRN #7 tab 02/19/23 Rx Allergies Allergy/AdvReac Type Severity Reaction Status Date / Time Sulfa (Sulfonamide AdvReac Unknown Verified 10/21/23 13:55 Antibiotics) Surgical - Exam Osteopathic Statement: *. No significant issues noted on an osteopathic structural exam other than those noted in the History and Physical/Consult. Vital Signs Temp Pulse Resp BP Pulse Ox 97.0 F L 80 18 120/80 99 10/21/23 13:50 10/21/23 13:50 10/21/23 13:50 10/21/23 13:50 10/21/23 13:50 - Eyes other (Subconjunctival hemorrhage left eye.) - Cardiovascular Rhythm: regular There is an area of pseudoaneurysmal rupture approximately 6-7 cm proximal to the radial/carpal joint. There is a palpable radial and ulnar pulses. Mikael's testing demonstrated good collateral flow through the ulnar artery. I discussed with the patient and his who is at bedside surgical options of control of the pseudoaneurysm rupture by ligation above and distal to the pseudoaneurysm and that should revascularization be needed this can be done on a more elective procedure. The procedure, risk and benefits were discussed. All questions were answered to the patient and spouse satisfaction. Consent form signed. Results - Labs 10/21/23 13:58 10/21/23 13:58 Abnormal Lab Results - Last 24 Hours (Table) 10/21/23 10/21/23 10/21/23 Range/Units 13:58 13:58 13:58 RBC 4.05 L (4.30-5.90) m/uL Plt Count 133 L (150-450) k/uL PT 13.1 H (10.0-12.5) sec INR 1.2 H (<1.2) BUN 40 H (9-20) mg/dL Creatinine 1.80 H (0.66-1.25) mg/dL Glucose 125 H (74-99) mg/dL Alkaline Phosphatase 167 H (38-126) U/L Diabetes panel 10/21/23 Range/Units 13:58 Sodium 140 (137-145) mmol/L Potassium 3.9 (3.5-5.1) mmol/L Chloride 106 (98-107) mmol/L Carbon Dioxide 22 (22-30) mmol/L BUN 40 H (9-20) mg/dL Creatinine 1.80 H (0.66-1.25) mg/dL Glucose 125 H (74-99) mg/dL Calcium 8.9 (8.4-10.2) mg/dL AST 35 (17-59) U/L ALT 29 (4-49) U/L Alkaline Phosphatase 167 H (38-126) U/L Total Protein 6.5 (6.3-8.2) g/dL Albumin 3.8 (3.5-5.0) g/dL Calcium panel 10/21/23 Range/Units 13:58 Calcium 8.9 (8.4-10.2) mg/dL Albumin 3.8 (3.5-5.0) g/dL Pituitary panel 10/21/23 Range/Units 13:58 Sodium 140 (137-145) mmol/L Potassium 3.9 (3.5-5.1) mmol/L Chloride 106 (98-107) mmol/L Carbon Dioxide 22 (22-30) mmol/L BUN 40 H (9-20) mg/dL Creatinine 1.80 H (0.66-1.25) mg/dL Glucose 125 H (74-99) mg/dL Calcium 8.9 (8.4-10.2) mg/dL Adrenal panel 12/10/23 Range/Units 13:58 Sodium 140 (137-145) mmol/L Potassium 3.9 (3.5-5.1) mmol/L Chloride 106 (98-107) mmol/L Carbon Dioxide 22 (22-30) mmol/L BUN 40 H (9-20) mg/dL Creatinine 1.80 H (0.66-1.25) mg/dL Glucose 125 H (74-99) mg/dL Calcium 8.9 (8.4-10.2) mg/dL Total Bilirubin 1.2 (0.2-1.3) mg/dL AST 35 (17-59) U/L ALT 29 (4-49) U/L Alkaline Phosphatase 167 H (38-126) U/L Total Protein 6.5 (6.3-8.2) g/dL Albumin 3.8 (3.5-5.0) g/dL Assessment and Plan Assessment: 1: Ruptured pseudoaneurysm arising from the right radial artery secondary to cardiac catheterization, status post cardiac stenting. 2: Coronary artery disease, status post cardiac balloon dilation and stent placement. 3: Abnormal coagulation profile. Patient on both aspirin and Eliquis. 4: History tobacco use. 5: History of atrial fibrillation. Plan: Surgical exploration of ruptured radial artery pseudoaneurysm site. Ligation proximal and distal versus formal bypass. Leaning toward ligation with bypass should this be necessary in the future.
[2023-10-21] MEDS ORDERED: LIDOCAINE 1% INJ 10MG/ML (20 ML MDV) SQ ONE ×2 (16:09)
[2023-10-21] MEDS ORDERED: NITROGLYCERIN SL TABS 0.4 MG TAB SUBLINGUAL PRN (17:07)
--- NOTE | 2023-10-21 17:07 | P.OP ---
Date of Procedure: 10/21/23 Preoperative Diagnosis: Ruptured pseudoaneurysm arising from right radial artery. Postoperative Diagnosis: Same. Procedure(s) Performed: 1: Excision of ruptured pseudoaneurysm arising from right radial artery. Implants: None. Anesthesia: MAC, local (1% Xylocaine.) Surgeon: Zachary Luna Estimated Blood Loss (ml): 15 Urine output (ml): 0 Pathology: none sent Condition: stable Disposition: observation Indications for Procedure: Patient is an 88-year-old gentleman who had undergone a cardiac catheterization via right radial artery approach in May of this year. Over the past few months is been no sing an enlarging mass in the right forearm in the area of cardiac catheterization. [facility] and the patient was awaiting planned elective surgical resection. Earlier today he bega n to experience bleeding from this at which time he presented to [facility] emergency department. Because of the bleeding nature the patient is offered emergent repair. Prior to the procedure was testing was performed which demonstrated good ulnar collateral ulnar flow. Because of the emergent nature of the procedure and good ulnar flow patient was offered ligation of the radial artery and resection of the pseudoaneurysm. The procedure, risk and benefits of the procedure were discussed with the patient. All questions were answered to patient and spouse satisfaction. Consent form was signed Operative Findings: Ruptured pseudoaneurysm Description of Procedure: Patient brought the upper and placed in the supine position and administered attended anesthesia delivered by the department anesthesiology. The patient received 2 g of Ancef in the perioperative phase for prophylactic antibiotic purposes. The patient's right upper extremity was sterilely prepped and draped in usual manner. 1% Xylocaine was utilized for local anesthesia in the soft tissues and proximal and distal to the pseudoaneurysmal a dilated segment. Palpable radial and ulnar pulses were noted. Through the anesthetized area skin incision was made carried down through subcutaneous tissues. The pseudoaneurysmal sac was densely adherent to surrounding structures. With tedious dissection the pseudoaneurysmal sac was dissected free of investing tissues and the radial artery feeding the pseudoaneurysm was identified and ligated with silk suture. The sac and associated thrombotic material was removed. The wound was irrigated. Hemostasis was achieved using electrocautery. Excellent ulnar pulse was noted and the hand and fingers were pink and healthy in appearance. With the above findings noted and hemostasis achieved wound was closed with 4-0 nylon suture placed in vertical mattress form. The site of the pseudoaneurysm rupture at the skin was left open for drainage purposes. 4 x 4's were placed over the wound and the arm was wrapped with a Jose wrap for mild compressive purposes. Patient tolerated the procedure well and was taken the recovery area satisfactory and stable condition.
[2023-10-21] MEDS ORDERED: HYDROcodone/APAP 5-325MG 1 EACH TAB PO PRN (17:14)
[2023-10-21 18:06] LABS: Glucose,Whole Blood 98 mg/dL (70-110)
[2023-10-21] MEDS: LACTATED RINGERS 1,000 ML IV SCH (18:23)
[2023-10-21] MEDS: DORZOLAMIDE-TIMOLOL 2.23%/0.68 10ML BTL BOTH EYES SCH (18:24)
[2023-10-21] MEDS ORDERED: ATORVASTATIN 40 MG TAB PO SCH (21:00)
[2023-10-21] MEDS ORDERED: LATANOPROST 0.005% OPHTH DROPS 2.5 ML BTL BOTH EYES SCH (21:00)
[2023-10-21] MEDS ORDERED: TICAGRELOR 90 MG TAB PO SCH (21:00)
[2023-10-21] MEDS ORDERED: NETARSUDIL MESYLATE BOTH EYES SCH (21:00)
[2023-10-21] MEDS ORDERED: METOPROLOL SUCCINATE (ER) 50 MG TAB.ER.24H PO SCH (22:00)
[2023-10-21] MEDS ORDERED: FUROSEMIDE 20 MG TAB PO SCH (22:00)
--- NOTE | 2023-10-22 00:09 | P.CONS ---
History of Present Illness - Reason for Consult Consult date: 10/21/23 - History of Present Illness Patient is a 88-year-old male with a PMH of CAD status post stenting, A. fib on Eliquis, glaucoma, systolic CHF with EF 30%, hyperlipidemia, who had presented to the emergency room with complaints of right wrist bleeding and bruising. 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 The aneurysm however burst earlier today. He was taken to the OR by vascular surgery and pseudoaneurysm subsequently repaired. He was seen postoperatively in the ICU. Reported excellent control his pain with minimal right hand numbness at the time of interview. The patient was noted to have left sided subconjunctival hemorrhage on exam. He denies any ocular pain or trauma. States that he was using both daily doses of his glaucoma medications in the evening. He reports first noticing the hemorrhage yesterday evening. He routinely follows with ophthalmol adan at the [place]. Denied chest discomfort, shortness of breath, fever, chills, cough, nausea, vomiting, abdominal pain. EKG in the emergency room revealed A. fib at 73 bpm with left axis deviation as reviewed by me. Laboratory evaluation was remarkable for platelet count 133 (at baseline), BUN 40, creatinine 1.80 (at baseline), glucose 125, alk phos 167. ED documentation reviewed and case discussed with ED provider. Review of systems: Pertinent positives and negatives as discussed in HPI, a complete review of systems was performed and all other systems are negative. Physical examination: Vital signs reviewed General: non toxic, no distress, appears at stated age, overweight Derm: no unusual rashes/lesions, warm Head: atraumatic, normocephalic, symmetric Eyes: EOMI, no lid lag, anicteric sclera, left pupils equal round reactive to light, left subconjunctival hemorrhage noted without hyphema or obvious signs of trauma ENT: Nose and ears atraumatic Neck: No cervical lymphadenopathy, trachea midline, supple Mouth: no lip lesion, mucus membranes moist Cardiovascular: S1S2 reg, no murmur, positive dorsalis pedis pulse bilateral, no edema Lungs: CTA bilateral, no rhonchi, no rales, no accessory muscle use Abdominal: soft, nontender to palpation, no guarding Ext: muscle strength 5 out of 5 in all 4 extremities grossly, no gross muscle atrophy, no contractures, right wrist and forearm dressing in place Neuro: CN II-XI grossly intact, no gross focal neuro deficits Psych: Alert, oriented, appropriate affect Assessment: Right radial artery pseudoaneurysm status post repair Nontraumatic spontaneous subconjunctival hemorrhage, left Chronic conditions: CAD status post stenting, A. fib on Eliquis, systolic CHF, hyperlipidemia, CKD, glaucoma Imaging: EKG in the emergency room revealed A. fib at 73 bpm with left axis deviation as reviewed by me. Data Review: Laboratory evaluation was remarkable for platelet count 133 (at baseline), BUN 40, creatinine 1.80 (at baseline), glucose 125, alk phos 167. Plan: Continue home medications including Plavix Defer resumption of home Eliquis to primary surgery service Cardiac monitoring Ophthalmology consult placed We appreciate this opportunity to be involved in this patient's care. We will follow the patient with you. For any further questions, please not hesitate to contact the [facility] inpatient team. Past Medical History Past Medical History: Atrial Fibrillation, Cancer Additional Past Medical History / Comment(s): colon ca 2002 with chemo and surgery, gout, right drop foot, pt self caths, History of Any Multi-Drug Resistant Organisms: None Reported Past Surgical History: Cholecystectomy Additional Past Surgical History / Comment(s): TRIP; abd surgery Past Anesthesia/Blood Transfusion Reactions: No Reported Reaction Past Psychological History: No Psychological Hx Reported Smoking Status: Former smoker Past Alcohol Use History: None Reported Past Drug Use History: None Reported - Past Family History Father Family Medical History: Myocardial Infarction (CT) Medications and Allergies Home Medications Medication Instructions Recorded Confirmed Type Dorzolamide-Timol 2.23%/0.68% 1 drop BOTH EYES BID 02/16/23 10/21/23 History [Cosopt] Latanoprost [Latanoprost 0.005%] 1 drop BOTH EYES HS 02/16/23 10/21/23 History Tiotropium 2.5 Mcg/Puff [Spiriva 2 puff INHALATION RT-DAILY 02/16/23 10/21/23 History Respimat 2.5 Mcg] allopurinoL [Zyloprim] 200 mg PO DAILY 02/16/23 10/21/23 History Netarsudil Mesylate [Rhopressa] 1 drop BOTH EYES HS 02/17/23 10/21/23 History Losartan [Cozaar] 12.5 mg PO DAILY #30 tab 02/19/23 10/21/23 Rx Nitroglycerin Sl Tabs [Nitrostat] 0.4 mg SUBLINGUAL Q5M PRN #7 tab 02/19/23 10/21/23 Rx Apixaban [Eliquis] 2.5 mg PO BID 10/21/23 10/21/23 History Atorvastatin [Lipitor] 80 mg PO HS 10/21/23 10/21/23 History Carboxymethylcellulose Sodium 1 drop BOTH EYES QID 10/21/23 10/21/23 History Clopidogrel [Plavix] 75 mg PO DAILY 10/21/23 10/21/23 History Empagliflozin [Jardiance] 12.5 mg PO DAILY 10/21/23 10/21/23 History Metoprolol Succinate [Toprol XL] 50 mg PO DAILY 10/21/23 10/21/23 History Pantoprazole Sodium 20 mg PO DAILY 10/21/23 10/21/23 History Torsemide [Demadex] 10 mg PO Q48H 10/21/23 10/21/23 History Vit C/E/Zn/Coppr/Lutein/Zeaxan 1 cap PO BID 10/21/23 10/21/23 History [Preservision Areds 2 Softgel] Allergies Allergy/AdvReac Type Severity Reaction Status Date / Time Sulfa (Sulfonamide AdvReac Unknown Verified 10/21/23 19:20 Antibiotics) Childhood Physical Exam Vitals: Vital Signs Temp Pulse Pulse Resp BP BP Pulse Ox 10/21/23 20:00 97.4 F L 56 L 14 120/79 96 10/21/23 19:30 56 L 11 L 10/21/23 19:00 58 L 14 123/83 95 10/21/23 18:30 98.2 F 55 L 15 123/83 95 10/21/23 18:06 99 10/21/23 17:46 61 16 102/68 100 10/21/23 17:35 73 16 96/58 100 10/21/23 17:17 72 18 109/66 100 10/21/23 17:06 97.4 F L 73 18 105/65 99 10/21/23 15:12 97.2 F L 79 18 129/75 96 10/21/23 14:52 74 18 119/75 96 10/21/23 14:31 72 18 119/79 96 10/21/23 14:20 77 18 124/87 99 10/21/23 14:03 76 18 125/94 100 10/21/23 13:54 120/80 100 10/21/23 13:50 97.0 F L 80 18 120/80 99 Intake and Output 10/21/23 10/21/23 10/22/23 14:59 22:59 06:59 Intake Total 1450 Output Total 50 Balance 1400 Intake: IV 1450 Output: Estimated Blood Loss 50 Other: Voiding Method Self-Catheterization Weight 85.729 kg Results CBC & Chem 7: 10/22/23 03:21 10/21/23 13:58 Labs: Abnormal Lab Results - Last 24 Hours (Table) 10/21/23 10/21/23 10/21/23 Range/Units 13:58 13:58 13:58 RBC 4.05 L (4.30-5.90) m/uL Plt Count 133 L (150-450) k/uL PT 13.1 H (10.0-12.5) sec INR 1.2 H (<1.2) BUN 40 H (9-20) mg/dL Creatinine 1.80 H (0.66-1.25) mg/dL Glucose 125 H (74-99) mg/dL Alkaline Phosphatase 167 H (38-126) U/L
[2023-10-22 04:50] LABS: HCT 37.3 % (39.0-53.0); HGB 11.3 gm/dL (13.0-17.5); Hypochromasia Moderate; MCH 30.3 pg (25.0-35.0); MCHC 30.4 g/dL (31.0-37.0); MCV 99.6 fL (80.0-100.0); Macrocytosis Slight; Mean Platelet Volume 10.1; Platelet Count 144 k/uL (150-450); RBC 3.75 m/uL (4.30-5.90); RDW 15.6 % (11.5-15.5)
[2023-10-22] MEDS: IPRATROPIUM 0.5 MG/2.5 ML NEBU INHALATION SCH ×3 (08:08→15:57)
--- NOTE | 2023-10-22 08:29 | P.PN ---
Subjective Progress Note Date: 10/22/23 Patient is a 88-year-old male with known atrial fibrillation anticoagulated with Eliquis, coronary artery disease with ST segment elevated myocardial infarction in February 2023 complicated by V-fib arrest and ischemic cardiomyopathy with ejection fraction 30%, gout, urinary retention requiring self cath, and prior colon cancer who presented to the emergency department with bleeding from the right radial area. Patient notes that he had a cardiac catheterization done in February 2023 when he developed a lump over this area in May and was diagnosed with radial artery aneurysm. Vascular surgery was subsequently contacted and recommended surgical exploration of the pseudoaneurysm. On arrival to the ER he underwent extensive evaluation. Initial vitals were within normal limits. Initial laboratory analysis included CBC, coags, and CMP which were remarkable for platelets of 133 and creatinine of 1.8 with baseline of 2. He was urgently taken to the OR and underwent resection of the right radial artery pseudoaneurysm. Patient seen and examined at bedside. He has no complaints. No chest pain, SOB, light headedness, dizziness. He has no pain in his wrist, no numbness and all fingers are moving normally. Vital signs reviewed General: Nontoxic, no distress, appears at stated age Cardiovascular: S1S2 reg, no murmur, positive posterior tibial pulse bilateral, Lungs: CTA bilateral, no rhonchi, no rales, no accessory muscle use Abdominal: Soft, nontender to palpation, no guarding, no appreciable organomegaly Ext: No gross muscle atrophy, no edema b/l lower extremities, no contractures, dressig in place over right wrist. able to move all fingers to thumb on right hand, sensation intact on right hand. Neuro: CN II-XI grossly intact, no focal neuro deficits Psych: Alert, oriented, appropriate affect Assessment/Plan: Right radial artery pseudoaneurysm removal Thrombocytopenia Acute blood loss anemia- less than 2 gram drop no need for repeat. -Vascular surgery recommendations - case discussed with vascular [employer] we will consult cardio to see if can decrease anticoagulation. Likely home today. - no indication for transfusion subconjunctival hemorrhage - likely can follow up with optho as outpatient Ischemic cardiomyopathy with ejection fraction 30% Hypertension Permanent A-fib anticoagulated on Eliquis Chronic kidney disease stage III -Lipitor 80 mg at night -Jardiance with Farxiga 5 mg daily, metoprolol 50 mg daily, Demadex 10 mg every 48 hours, losartan 12.5 mg daily Imaging: None new Data Review: Labs reviewed from today include CBC which is remarkable for white blood cell c ount 11, hemoglobin 11.3, and platelets of 144 Thank you for allowing us to participate in the care of this pleasant patient. Do not hesitate to contact us with questions. Someone can be reached from the [facility] hospitalist group all hours of the day at [phone] or via [employer]. This dictation was prepared using [employer] voice recognition software. Though every attempt is made to correct errors during dictation some may still exist. Objective - Vital Signs Vital signs: Vital Signs Temp 97.6 F 10/22/23 02:00 Pulse 90 10/22/23 08:16 Resp 14 10/22/23 07:00 BP 122/80 10/22/23 03:00 Pulse Ox 97 10/22/23 02:00 FiO2 Intake & Output 10/21/23 10/22/23 10/22/23 18:59 06:59 18:59 Intake Total 1450 300 Output Total 50 0 Balance 1400 300 Weight 85.729 kg Intake: IV 1450 Intake, IV Titration 300 Amount Lactated Ringers 1,000 ml 300 @ 50 mls/hr IV .Q20H [facility] Rx#:[id number] Output: Urine 0 Estimated Blood Loss 50 Other: Voiding Method Self-Catheterization Self-Catheterization - Labs CBC & Chem 7: 10/22/23 03:21 10/21/23 13:58 Labs: Abnormal Lab Results - Last 24 Hours (Table) 10/21/23 10/21/23 10/21/23 Range/Units 13:58 13:58 13:58 WBC (3.8-10.6) k/uL RBC 4.05 L (4.30-5.90) m/uL Hgb (13.0-17.5) gm/dL Hct (39.0-53.0) % MCHC (31.0-37.0) g/dL RDW (11.5-15.5) % Plt Count 133 L (150-450) k/uL PT 13.1 H (10.0-12.5) sec INR 1.2 H (<1.2) BUN 40 H (9-20) mg/dL Creatinine 1.80 H (0.66-1.25) mg/dL Glucose 125 H (74-99) mg/dL Alkaline Phosphatase 167 H (38-126) U/L 10/22/23 Range/Units 03:21 WBC 11.0 H (3.8-10.6) k/uL RBC 3.75 L (4.30-5.90) m/uL Hgb 11.3 L (13.0-17.5) gm/dL Hct 37.3 L (39.0-53.0) % MCHC 30.4 L (31.0-37.0) g/dL RDW 15.6 H (11.5-15.5) % Plt Count 144 L (150-450) k/uL PT (10.0-12.5) sec INR (<1.2) BUN (9-20) mg/dL Creatinine (0.66-1.25) mg/dL Glucose (74-99) mg/dL Alkaline Phosphatase (38-126) U/L
[2023-10-22] MEDS ORDERED: TORSEMIDE 20 MG TAB PO SCH (09:00)
[2023-10-22] MEDS ORDERED: DAPAGLIFLOZIN PROPANEDIOL 10 MG TABLET PO SCH (09:00)
[2023-10-22] MEDS ORDERED: DAPAGLIFLOZIN PROPANEDIOL 5 MG TABLET PO SCH (09:00)
[2023-10-22] MEDS ORDERED: METOPROLOL SUCCINATE (ER) 50 MG TAB.ER.24H PO SCH (09:00)
[2023-10-22] MEDS ORDERED: CLOPIDOGREL 75 MG TAB PO SCH (09:00)
[2023-10-22] MEDS ORDERED: allopurinoL 100 MG TAB PO SCH (09:00)
[2023-10-22] MEDS ORDERED: LOSARTAN 25 MG TAB PO SCH (09:00)
--- NOTE | 2023-10-22 12:35 | P.DS ---
Providers Date of admission: 10/22/23 07:41 Expected date of discharge: 10/22/23 Attending physician: Zachary Luna, Consults: 10/21/23 15:45 Consult Physician Routine Consulting Provider: Ash Velasco Consult Reason/Comments: medical management Do you want consulting provider notified?: Already Contacted 10/22/23 02:08 Consult Physician Urgent Consulting Provider: Angelita Anglin Consult Reason/Comments: subconjunctival hemorrhage Do you want consulting provider notified?: Yes 10/22/23 10:09 Consult Physician Urgent Consulting Provider: Serjio Choi Consult Reason/Comments: anticoagulation recommendations Do you want consulting provider notified?: Yes Primary care physician: Stated None Hospital Course: 88-year-old male with known atrial fibrillation on Eliquis, 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 Patient had undergone cardiac catheterization via right radial artery approach February 2023. Patient was notified in May of this year that he had a pseudoaneurysm and was supposed to follow-up for possible repair. He was noted to have ruptured pseudoaneurysm arising from the right radial artery and is postop day #1 for excision of ruptured pseudoaneurysm arising from right radial artery. He is in the ICU. He overall is doing well. He has a left conjunctiva hemorrhage which he states he has had. He is currently on both Eliquis and Plavix. He denies any pain in the right wrist. His sensorimotor is intact. He denies any visual changes. Denies any shortness of breath, chest pain, abdominal pain, nausea or vomiting. WBC 11.0 hemoglobin 11.3 hematocrit 37. Exam General appearance: The patient is alert, oriented, appears in no acute distress. HET: Head is normocephalic, left eye subconjunctival hemorrhage. Pupils are equal and reactive. Neck: Supple. Heart: Regular. Lungs: Equal expansion, normal respiratory effort. Abdomen: Soft, nontender, nondistended. Extremities: Right wrist with dressing clean dry and intact. Dressing removed sutures well approximated there is intentional opening was some sanguinous drainage. Redressed with 4 x 4 and Coban. Palpable radial pulse. Neurological: No focal deficits. Sensorimotor intact. Assessment 1. Ruptured pseudoaneurysm arising from right radial artery status post excision of ruptured pseudoaneurysm arising from right radial artery 2. Left eye sub-conjunctival hemorrhage 3. History coronary artery disease status post cardiac catheterization by mouth right radial artery 4. Atrial fibrillation Plan Consult to cardiology for recommendations of anticoagulation. Inquiring if patient needs both Eliquis and Plavix as history of ruptured pseudoaneurysm and conjunctiva hemorrhage. Patient can follow-up with ophthalmology in the outpatient setting. Plan for discharge today pending cardiology input. Dressing change daily 4 x 4, Kerlix. Patient may shower. The impression and plan of care has been dictated as directed. I performed a history and examination of this patient, discussed the same with the dictator. I agree with the dictator's note ,documented as a scribe. Any additional findings or plans will be noted. Patient Condition at Discharge: Serious Plan - Discharge Summary Discharge Rx Participant: Yes New Discharge Prescriptions: No Action allopurinoL [Zyloprim] 200 mg PO DAILY Netarsudil Mesylate [Rhopressa] 1 drop BOTH EYES HS Atorvastatin [Lipitor] 80 mg PO HS Empagliflozin [Jardiance] 12.5 mg PO DAILY Metoprolol Succinate [Toprol XL] 50 mg PO DAILY Torsemide [Demadex] 10 mg PO Q48H Latanoprost [Latanoprost 0.005%] 1 drop BOTH EYES HS Dorzolamide-Timol 2.23%/0.68% [Cosopt] 1 drop BOTH EYES BID Tiotropium 2.5 Mcg/Puff [Spiriva Respimat 2.5 Mcg] 2 puff INHALATION RT-DAILY Losartan [Cozaar] 12.5 mg PO DAILY #30 tab Nitroglycerin Sl Tabs [Nitrostat] 0.4 mg SUBLINGUAL Q5M PRN #7 tab PRN Reason: Chest Pain Apixaban [Eliquis] 2.5 mg PO BID Carboxymethylcellulose Sodium 1 drop BOTH EYES QID Clopidogrel [Plavix] 75 mg PO DAILY Vit C/E/Zn/Coppr/Lutein/Zeaxan [Preservision Areds 2 Softgel] 1 cap PO BID Pantoprazole Sodium 20 mg PO DAILY Discharge Medication List Dorzolamide-Timol 2.23%/0.68% [Cosopt] 1 drop BOTH EYES BID 02/16/23 [History] Latanoprost [Latanoprost 0.005%] 1 drop BOTH EYES HS 02/16/23 [History] Tiotropium 2.5 Mcg/Puff [Spiriva Respimat 2.5 Mcg] 2 puff INHALATION RT-DAILY 02/16/23 [History] allopurinoL [Zyloprim] 200 mg PO DAILY 02/16/23 [History] Netarsudil Mesylate [Rhopressa] 1 drop BOTH EYES HS 02/17/23 [History] Losartan [Cozaar] 12.5 mg PO DAILY #30 tab 02/19/23 [Rx] Nitroglycerin Sl Tabs [Nitrostat] 0.4 mg SUBLINGUAL Q5M PRN #7 tab 02/19/23 [Rx] Apixaban [Eliquis] 2.5 mg PO BID 10/21/23 [History] Atorvastatin [Lipitor] 80 mg PO HS 10/21/23 [History] Carboxymethylcellulose Sodium 1 drop BOTH EYES QID 10/21/23 [History] Clopidogrel [Plavix] 75 mg PO DAILY 10/21/23 [History] Empagliflozin [Jardiance] 12.5 mg PO DAILY 10/21/23 [History] Metoprolol Succinate [Toprol XL] 50 mg PO DAILY 10/21/23 [History] Pantoprazole Sodium 20 mg PO DAILY 10/21/23 [History] Torsemide [Demadex] 10 mg PO Q48H 10/21/23 [History] Vit C/E/Zn/Coppr/Lutein/Zeaxan [Preservision Areds 2 Softgel] 1 cap PO BID 10/21/23 [History] Follow up Appointment(s)/Referral(s): Zachary Luna DO [Doctor of Osteopathic Medicine] - 10/30/23 (At [facility] ) None,Stated [Primary Care Provider] - 1-2 days
[2023-10-22] MEDS: LACTATED RINGERS 1,000 ML IV SCH (14:00)
[2023-10-22 15:16] VITALS: BP 87/50; RESP 18; TEMP 97.8
[2023-10-22 16:07] VITALS: PULSE 75
--- NOTE | 2023-10-22 17:30 | P.CRDCN ---
History of Present Illness History of present illness: HISTORY OF PRESENTING ILLNESS Patient is pleasant 88-year-old male with history of CAD status post PCI in February 2023, persistent A. fib, glaucoma, systolic heart failure EF 30%, hyperlipidemia who presents secondary to bleeding from the right radial site. Patient had undergone heart catheterization from February 2023 and had done fairly well and has been following with [facility] with cardiology. He surprisingly had increased swelling approximately 2 months after his heart catheterization in his right wrist and was diagnosed with pseudoaneurysm and initially this was recommended to be monitored. He then had an episode on Sunday without any trauma to the wrist where he started noticing dramatic increase in swelling and shooting blood coming from the site. He was diagnosed with pseudoaneurysm and underwent repair with vascular surgery. He also had a left eye subconjunctival hemorrhage which also occurred on Sunday. He denies any trauma or new medications. He normally takes Plavix for his history of stenting as well as Eliquis. Cardiology was consult that for recommendations regarding anticoagulation and antiplatelets. He denies any naz st pain or pressure, shortness of breath. His blood pressures have been systolics 90s-110s with heart rates predominantly controlled 80s however occasionally up in the 100-120 range. REVIEW OF SYSTEMS At the time of my exam: CONSTITUTIONAL: Denies fever or chills. CARDIOVASCULAR: Denies chest pain, shortness of breath, orthopnea, PND or palpitations. RESPIRATORY: Denies cough. GASTROINTESTINAL: Denies abdominal pain, diarrhea, constipation, nausea or vomiting. MUSCULOSKELETAL: Denies myalgias. NEUROLOGIC: Denies numbness, tingling or weakness. ENDOCRINE: Denies fatigue, weight change, polydipsia or polyurina. GENITOURINARY: Denies burning, hematuria or urgency with micturation. HEMATOLOGIC: Denies history of anemia or bleeding. PHYSICAL EXAMINATION Vital signs reviewed. CONSTITUTIONAL: No apparent distress. HEENT: Head is normocephalic. Pupils are equal, round. Sclerae anicteric. Mucous membranes of the mouth are moist. No JVD. No carotid bruit. CHEST EXAMINATION: Lungs are clear to auscultation. No chest wall tenderness is noted on palpation or with deep breathing. HEART EXAMINATION: Irregular rate and rhythm. S1, S2 heard. No murmurs, gallops or rub. ABDOMEN: Soft, nontender. Positive bowel sounds. EXTREMITIES: 2+ peripheral pulses, no lower extremity edema and no calf tenderness. NEUROLOGIC EXAMINATION: Patient is awake, alert and oriented x3. ASSESSMENT 1. Right radial pseudoaneurysm and lead/hemorrhage status post vascular surgery repair 2. CAD with prior history of PCI, STEMI February 2023 3. Persistent A. fib 4. Hypertension 5. Chronic systolic heart failure 6. Anemia PLAN Patient did have pseudoaneurysm which was surprisingly late presentation 2-3 months after his heart catheterization. He underwent successful repair and currently appears back to his baseline. Given history of atrial fibrillation recommend Eliquis at the current 2.5 mg twice a day dosing as well as Plavix 75 mg daily given his recent stenting. Recommend continuing Plavix until February 2024. If more significant episodes of bleeding may consider discontinuation of Plavix early however episode appears more related to pseudoaneurysm. Past Medical History Past Medical History: Atrial Fibrillation, Cancer Additional Past Medical History / Comment(s): colon ca 2002 with chemo and surgery, gout, right drop foot, pt self caths, History of Any Multi-Drug Resistant Organisms: None Reported Past Surgical History: Cholecystectomy Additional Past Surgical History / Comment(s): TRIP; abd surgery Past Anesthesia/Blood Transfusion Reactions: No Reported Reaction Past Psychological History: No Psychological Hx Reported Smoking Status: Former smoker Past Alcohol Use History: None Reported Past Drug Use History: None Reported - Past Family History Father Family Medical History: Myocardial Infarction ([place]) Medications and Allergies Home Medications Medication Instructions Recorded Confirmed Type Dorzolamide-Timol 2.23%/0.68% 1 drop BOTH EYES BID 02/16/23 10/21/23 History [Cosopt] Latanoprost [Latanoprost 0.005%] 1 drop BOTH EYES HS 02/16/23 10/21/23 History Tiotropium 2.5 Mcg/Puff [Spiriva 2 puff INHALATION RT-DAILY 02/16/23 10/21/23 History Respimat 2.5 Mcg] allopurinoL [Zyloprim] 200 mg PO DAILY 02/16/23 10/21/23 History Netarsudil Mesylate [Rhopressa] 1 drop BOTH EYES HS 02/17/23 10/21/23 History Losartan [Cozaar] 12.5 mg PO DAILY #30 tab 02/19/23 10/21/23 Rx Nitroglycerin Sl Tabs [Nitrostat] 0.4 mg SUBLINGUAL Q5M PRN #7 tab 02/19/23 10/21/23 Rx Apixaban [Eliquis] 2.5 mg PO BID 10/21/23 10/21/23 History Atorvastatin [Lipitor] 80 mg PO HS 10/21/23 10/21/23 History Carboxymethylcellulose Sodium 1 drop BOTH EYES QID 10/21/23 10/21/23 History Clopidogrel [Plavix] 75 mg PO DAILY 10/21/23 10/21/23 History Empagliflozin [Jardiance] 12.5 mg PO DAILY 10/21/23 10/21/23 History Metoprolol Succinate [Toprol XL] 50 mg PO DAILY 10/21/23 10/21/23 History Pantoprazole Sodium 20 mg PO DAILY 10/21/23 10/21/23 History Torsemide [Demadex] 10 mg PO Q48H 10/21/23 10/21/23 History Vit C/E/Zn/Coppr/Lutein/Zeaxan 1 cap PO BID 10/21/23 10/21/23 History [Preservision Areds 2 Softgel] Allergies Allergy/AdvReac Type Severity Reaction Status Date / Time Sulfa (Sulfonamide AdvReac Unknown Verified 10/21/23 19:20 Antibiotics) Childhood Physical Exam Vitals: Vital Signs Temp Pulse Pulse Resp BP BP Pulse Ox 10/22/23 16:05 75 10/22/23 15:57 80 10/22/23 14:00 97.8 F 77 18 87/50 95 10/22/23 12:37 82 10/22/23 12:28 79 10/22/23 10:41 90/57 10/22/23 09:00 92 23 10/22/23 08:16 90 10/22/23 08:08 86 10/22/23 08:00 97.9 F 110 H 19 87/49 97 10/22/23 07:00 81 14 10/22/23 06:00 78 15 10/22/23 05:00 75 14 10/22/23 04:00 75 14 10/22/23 03:00 80 18 122/80 10/22/23 02:00 97.6 F 80 9 L 124/67 97 10/22/23 01:00 76 15 111/74 10/22/23 00:00 76 14 122/80 10/21/23 23:00 66 13 124/71 10/21/23 22:00 68 18 115/83 10/21/23 21:00 10 L 123/71 10/21/23 20:05 65 10 L 123/71 10/21/23 20:00 97.4 F L 56 L 14 120/79 96 10/21/23 19:30 56 L 11 L 10/21/23 19:00 58 L 14 123/83 95 10/21/23 18:30 98.2 F 55 L 15 123/83 95 10/21/23 18:06 99 10/21/23 17:46 61 16 102/68 100 10/21/23 17:35 73 16 96/58 100 Intake and Output 10/22/23 10/22/23 10/22/23 06:59 14:59 22:59 Intake Total 120 Output Total 0 800 Balance 0 -680 Intake: Oral 120 Output: Urine 0 800 Other: Voiding Method Self-Catheterization Self-Catheterization Results 10/22/23 03:21 10/21/23 13:58 CBC 10/22/23 Range/Units 03:21 WBC 11.0 H (3.8-10.6) k/uL RBC 3.75 L (4.30-5.90) m/uL Hgb 11.3 L (13.0-17.5) gm/dL Hct 37.3 L (39.0-53.0) % Plt Count 144 L (150-450) k/uL Current Medications Generic Name Dose Route Start Last Admin Trade Name Freq PRN Reason Stop Dose Admin Hydrocodone Bitart/Acetaminophen 1 each 10/21/23 17:14 Hydrocodone/Apap 5-325mg 1 Each Tab PO Q4HR PRN Pain Allopurinol 200 mg 10/22/23 09:00 10/22/23 09:26 Allopurinol 100 Mg Tab PO 200 mg DAILY TAQUERIA Administration Atorvastatin Calcium 80 mg 10/21/23 21:00 10/21/23 22:17 Atorvastatin 40 Mg Tab PO 80 mg HS TAQUERIA Administration Clopidogrel Bisulfate 75 mg 10/22/23 09:00 10/22/23 09:27 Clopidogrel 75 Mg Tab PO 75 mg DAILY TAQUERIA Administration Dapagliflozin 5 mg 10/22/23 09:00 10/22/23 09:25 Dapagliflozin Propanediol 5 Mg Tablet PO 5 mg DAILY TAQUERIA Administration Dorzolamide/Timolol 1 drops 10/21/23 17:15 10/21/23 18:24 Dorzolamide-Timolol 2.23%/0.68 10ml Btl BOTH EYES 1 drops DIRECTED TAQUERIA Administration Lactated Ringer's 1,000 mls @ 50 mls/hr 10/21/23 17:15 10/22/23 14:00 Lactated Ringers IV Not Given .Q20H TAQUERIA Ipratropium Gordon 0.5 mg 10/22/23 08:00 10/22/23 15:57 Ipratropium 0.5 Mg/2.5 Ml Nebu INHALATION 0.5 mg RT-QID TAQUERIA Administration Latanoprost 1 drops 10/21/23 21:00 10/21/23 22:19 Latanoprost 0.005% Ophth Drops 2.5 Ml Btl BOTH EYES 1 drops HS TAQUERIA Administration Losartan Potassium 12.5 mg 10/22/23 09:00 10/22/23 09:27 Losartan 25 Mg Tab PO 12.5 mg DAILY TAQUERIA Administration Metoprolol Succinate 50 mg 10/22/23 09:00 10/22/23 09:27 Metoprolol Succinate (Er) 50 Mg Tab.Er.24h PO 50 mg DAILY TAQUERIA Administration Nitroglycerin 0.4 mg 10/21/23 17:07 Nitroglycerin Sl Tabs 0.4 Mg Tab SUBLINGUAL Q5M PRN Chest Pain Non-Formulary Medication 1 drop 10/21/23 21:00 10/21/23 22:15 Netarsudil Mesylate [Rhopressa] BOTH EYES Not Given HS TAQUERIA Torsemide 10 mg 10/22/23 09:00 10/22/23 09:27 Torsemide 20 Mg Tab PO 10 mg Q48H TAQUERIA Administration Intake and Output 10/22/23 10/22/23 10/22/23 06:59 14:59 22:59 Intake Total 120 Output Total 0 800 Balance 0 -680 Intake: Oral 120 Output: Urine 0 800 Other: Voiding Method Self-Catheterization Self-Catheterization 10/22/23 03:21 10/21/23 13:58
[2023-10-22] MEDS: DORZOLAMIDE-TIMOLOL 2.23%/0.68 10ML BTL BOTH EYES SCH (18:08)
== END 2023-10-22 19:01 | disposition home or self-care (01) | DRG 253 ==
LOC: EC 13:39 → 2SICU 14:38 → OBSVTOIN 10-22 07:41
PROVIDERS: ADMIT Surgery; ATTEND Surgery
PROC: 03QB0ZZ Repair Right Radial Artery, Open Approach (ICD-10-PCS; principal; 2023-10-22)
DX: I72.1 Aneurysm of artery of upper extremity (principal); I13.0 Hypertensive heart and chronic kidney disease with heart failure and stage 1 through stage 4 chronic kidney disease, or unspecified chronic kidney disease; I50.22 Chronic systolic (congestive) heart failure; I48.21 Permanent atrial fibrillation; M21.371 Foot drop, right foot; I25.5 Ischemic cardiomyopathy; I25.2 Old myocardial infarction; I25.10 Atherosclerotic heart disease of native coronary artery without angina pectoris; E78.5 Hyperlipidemia, unspecified; H11.32 Conjunctival hemorrhage, left eye; E11.22 Type 2 diabetes mellitus with diabetic chronic kidney disease; H40.9 Unspecified glaucoma; M10.9 Gout, unspecified; N18.30 Chronic kidney disease, stage 3 unspecified; Z79.02 Long term (current) use of antithrombotics/antiplatelets; Z79.01 Long term (current) use of anticoagulants; Z79.899 Other long term (current) drug therapy; Z82.49 Family history of ischemic heart disease and other diseases of the circulatory system; Z95.5 Presence of coronary angioplasty implant and graft; Z85.038 Personal history of other malignant neoplasm of large intestine; Z88.2 Allergy status to sulfonamides
CPT/HCPCS: 36415; 80053; 85025; 85027; 85610; 85730; 86850; 86900; 86901; 93005; 94640; 96360; 99291